=== PATIENT | male | born 1945 | race Caucasian/White ===

== ENCOUNTER 2017-12-29 11:58 | Inpatient (IN) ==
[2017-12-29] MEDS ORDERED: *HR* Dextrose 50 % in Water (Syg) 50 ML SYRINGE IVP PRN (21:12)
[2017-12-29] MEDS ORDERED: D5% in Water 1,000 ML IVC PRN (21:12)
[2017-12-29] MEDS ORDERED: Dextrose Gel 15 GM/37.5 ML TUBE PO PRN ×2 (21:12)
[2017-12-29] MEDS: Budesonide/Formoterol 160/4.5 1 PUFF INH IH SCH (22:15)
[2017-12-29] MEDS: cephALEXin 500 MG CAPSULE PO SCH (22:44)
[2017-12-29] MEDS: Pregabalin 50 MG CAPSULE PO SCH (22:45)
[2017-12-29] MEDS: Melatonin 3 MG TABLET PO SCH (22:45)
[2017-12-29] MEDS: *HR* OxyCODONE Immed Rel 5 MG TABLET PO PRN (22:46)
[2017-12-29] MEDS: traZODone 50 MG TABLET PO SCH (22:46)
[2017-12-30] MEDS: *HR* OxyCODONE Immed Rel 5 MG TABLET PO PRN ×3 (05:03→13:15)
[2017-12-30] MEDS: *HR* Enoxaparin 40 MG/0.4 ML SYRINGE SQ SCH (05:03)
[2017-12-30 05:51] LABS: Basophils # 0.1 K/mcL (0.0-0.2); Basophils % 0.5 %; Eosinophils # 0.9 K/mcL (0.0-0.6); Eosinophils % 8.8 %; Hematocrit 32.7 % (37.5-50.1); Hemoglobin 11.1 g/dL (12.9-16.9); Immature Granulocytes % 0.4 % (0-4); Lymphocytes # 1.8 K/mcL (0.6-4.6); Lymphocytes % 17.9 %; Mean Corpuscular HGB Conc 33.9 g/dL (31.6-35.5); Mean Corpuscular Hemoglobin 33.4 pg (28.0-33.3); Mean Corpuscular Volume 98.5 fL (83.0-100.0); Mean Platelet Volume 9.8 fL (9.4-12.4); Monocytes # 0.5 K/mcL (0.0-1.3); Monocytes % 5.4 %; Neutrophils # 6.8 K/mcL (1.6-8.9); Platelet Count 163 K/mcL (140-400); Red Blood Count 3.32 M/mcL (4.19-5.50)
[2017-12-30 06:08] LABS: BUN/Creatinine Ratio 14 (6-26); Blood Urea Nitrogen 10 mg/dL (8-23); Carbon Dioxide 23 mEq/L (23-29); Chloride 104 mEq/L (98-107); Glucose 158 mg/dL (70-105); Osmolality,Calculated 280 (280-300); Potassium 3.6 mEq/L (3.5-5.1); Sodium 134 mEq/L (136-145); eGFR For Non-African Americans > 60 (> 60)
[2017-12-30 06:09] LABS: Albumin 2.7 g/dL (3.5-5.7); Albumin/Globulin Ratio 1.1 (1.1-2.2); Bilirubin,Direct 0.4 mg/dL (0.0-0.2); Bilirubin,Indirect 0.5 mg/dL (0.0-1.2); Bilirubin,Total 0.9 mg/dL (0.3-1.0); Globulin 2.4 g/dL (2.4-3.5); Total Protein 5.1 g/dL (6.4-8.9)
[2017-12-30] MEDS: Aspirin Enteric Coated 81 MG Tablet PO SCH (08:54)
[2017-12-30] MEDS: *HR* Metformin 500 MG TABLET PO SCH ×2 (08:54→17:12)
[2017-12-30] MEDS: cephALEXin 500 MG CAPSULE PO SCH ×2 (08:55→20:32)
[2017-12-30] MEDS: Lactobacillus 1 EACH CAP.SPRINK PO SCH (08:55)
[2017-12-30] MEDS: Multivit/Ca/Min/Fe/FA 1 TAB TABLET PO SCH (08:55)
[2017-12-30] MEDS: Folic Acid 1 MG TABLET PO SCH (08:55)
[2017-12-30] MEDS: *HR* Glimepiride 2 MG TABLET PO SCH (08:55)
[2017-12-30] MEDS: Finasteride 5 MG TABLET PO SCH (08:56)
[2017-12-30] MEDS: Cholecalciferol (D-3) 1,000 UNIT TABLET PO SCH (08:56)
[2017-12-30] MEDS: amLODIPine 5 MG TABLET PO SCH (08:56)
[2017-12-30] MEDS: *HR* Amiodarone 200 MG TABLET PO SCH (08:56)
[2017-12-30] MEDS: Pregabalin 50 MG CAPSULE PO SCH ×2 (08:57→20:32)
[2017-12-30] MEDS: EPA PO SCH (08:58)
[2017-12-30] MEDS: FISH OIL PO SCH (08:58)
[2017-12-30] MEDS: DHA PO SCH (08:58)
[2017-12-30] MEDS: Budesonide/Formoterol 160/4.5 1 PUFF INH IH SCH ×2 (08:59→20:33)
[2017-12-30] MEDS: Insulin LISPRO 300 UNITS/3 ML VIAL SQ SCH ×4 (09:00→20:42)
--- NOTE | 2017-12-30 09:06 | Internal Med History&Physical ---
Date of Encounter: 12/30/17 Time of Encounter: 09:00 Assessment and Plan (1) Fusion of lumbar spine Current visit: Yes Status: Acute s/p surgery wound seems to be intact and clean getting rehab consults sent pain is well controlled (2) Psoriatic arthritis Current visit: No Status: Chronic hx of Psoriasis Arthritis no acute synovitis noted he is on mTX and is followed by Rheumatoid as out pt . (3) CAD (coronary artery disease) Current visit: Yes Status: Chronic stable on multiple meds no acute issues at the present time continue present meds Qualifiers: Coronary Disease-Associated Artery/Lesion type: unspecified vessel or lesion type Qualified Code(s): I25.10 - Atherosclerotic heart disease of [place] coronary artery without angina pectoris (4) HTN (hypertension) Current visit: Yes Status: Chronic on multiple meds will followup and adjust meds Qualifiers: Hypertension type: unspecified Qualified Code(s): I10 - Essential (primary) hypertension (5) Sleep apnea Current visit: Yes Status: Chronic uses CPAP please continue to use CPAP at same setting last night he didn't use but counseled him to use it as directed Qualifiers: Sleep apnea type: unspecified type Qualified Code(s): G47.30 - Sleep apnea, unspecified (6) COPD (chronic obstructive pulmonary disease) Current visit: Yes Status: Chronic on multiple inhalers continue present managemement and followup he is also Oxygen dependent uses it all the time Qualifiers: Emphysema type: unspecified Qualified Code(s): J43.9 - Emphysema, unspecified (7) Abnormal liver enzymes Current visit: Yes Status: Acute Noted to have some what elevated enzymes will followup he is also on MTX which could be the reason however the abnormalities are not more then three times normal . 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 Haney is a 72 year old male s/p lumabr fusion who was transferred for further care and rehab to [place] he has a long hx of Anemia, AAA which is being watched ,Asthma,A fib s/p ablation,cataract, Psoriasis arthritis,DM, COPD lymphedema of the left leg, sleep apnea s/p MD,Cahrcot Beatriz tooth disease denies any acute complains except for pain in his back which has been there since surgery and is well controlled He denies any SOB , chest pain Nausea vomiting or diarrhea He denies any fever or chill no cough ,no change in his urination or con stipation . Overall he feels better s/p surgery and is able to put weight which he was unable to do in past Past Med Surg Social Fam HX - Past Medical History Medical history: atrial fibrillation, diabetes, GERD, other Additional medical history: Sleep Apnea (uses CPAP/O2 @ Home), Lymphedema LE Left > Right,. Cataracts, Psoriatic Arthritis, Rymrhpc-Sorgs-Rejuy Disease Psychiatric history: no psych history - Past Surgical History Surgical History: cataract, orthopedic, other, other Additional surgical history: Cardiac - Hole in heart/repaired - Social History Smoking Status: Former smoker - Family History Mother Living Status: Hx Family Cancer: Yes (Uterus Cancer) Father Living Status: Hx Family Cancer: Yes (Lymphoma) Internal Medicine - H&P: Meds Albuterol Sulfate [Albuterol Inhaler] 2 puff IH DAILY PRN 12/29/17 [History] Amiodarone [Cordarone] 200 mg PO DAILY 12/29/17 [History] Aspirin [Adult Aspirin Regimen] 81 mg PO DAILY 12/29/17 [History] Budesonide/Formoterol 160/4.5 [Symbicort 160/4.5] 2 puff IH BIDR 12/29/17 [History] Calcium Carbonate/Vitamin D3 [Calcium 600 + Vit D Tablet] 1 each PO BID 12/29/17 [History] Calcium Polycarbophil [Fibercon] 625 mg PO BID 12/29/17 [History] Cholecalciferol (D-3) [Vitamin D] 1,000 unit PO BID 12/29/17 [History] Ferrous Sulfate [Iron] 325 mg PO DAILY 12/29/17 [History] Finasteride [Proscar] 5 mg PO DAILY 12/29/17 [History] Fish Oil/Dha/Epa [Fish Oil 1,200 mg Fish Oil] 1 each PO DAILY 12/29/17 [History] Folic Acid 1 mg PO DAILY 12/29/17 [History] Glimepiride [Amaryl] 2 mg PO 0800 12/29/17 [History] L.acidoph,Paracasei, B.lactis [Probiotic] 1 each PO DAILY 12/29/17 [History] Melatonin 5 mg PO HS 12/29/17 [History] Methocarbamol [Robaxin] 750 mg PO Q8HR PRN 12/29/17 [History] Methotrexate [Otrexup] 20 mg PO QWEEK 12/29/17 [History] Metoprolol [Lopressor] 25 mg PO BID 12/29/17 [History] Montelukast [Singulair] 10 mg PO HS 12/29/17 [History] Mv-Mn/FA/Coq10/Lycopene/Lutein [Theragran-M Premier 50+ Caplet] 1 each PO DAILY 12/29/17 [History] Omeprazole Magnesium [Prilosec Otc] 20 mg PO DAILY 12/29/17 [History] OxyCODONE Immed Rel [Roxicodone 10 MG] 10 mg PO Q4HR PRN 12/29/17 [History] OxyCODONE Immed Rel [Roxicodone 5 MG] 5 mg PO Q4HR PRN 12/29/17 [History] Potassium Chloride [K-Tab ER] 20 meq PO BID 12/29/17 [History] Pregabalin [Lyrica] 100 mg PO BID 12/29/17 [History] amLODIPine [Norvasc] 10 mg PO DAILY 12/29/17 [History] cephALEXin [Keflex] 500 mg PO BID 12/29/17 [History] metFORMIN [Glucophage] 500 mg PO BIDWM 12/29/17 [History] traZODone [TraZODone] 50 mg PO HS 12/29/17 [History] Allergy/AdvReac Type Severity Reaction Status Date / Time codeine Allergy Nausea Verified 12/29/17 20:12 Latex, Natural Rubber Allergy Rash Verified 12/29/17 20:12 Penicillins Allergy Rash Verified 12/29/17 20:12 Sulfa (Sulfonamide Allergy Rash Verified 12/29/17 20:12 Antibiotics) All Systems PM: A 10-system review of systems was performed and is negative for pertinent findings except as documented above in the HPI. - Constitutional Constitutional: no anorexia, no chills, no excessive sweating, no fatigue, no fever(s), no falls, no lethargy, no malaise, no night sweats - EENT Eyes: no blurry vision, no diplopia, no discharge, no loss of vision, no pain, n o photophobia, no seeing flashes Nose, mouth and throat: no bleeding gums, no dry mouth, no dysphagia, no nasal congestion, no nasal obstruction, no post-nasal drip, no sinus pain, no sinus pressure - Cardiovascular Cardiovascular ROS IM: no chest pain, no claudication, no diaphoresis, no dyspnea, no dyspnea on exertion, no lightheadedness, no orthopnea, no palpitations, no paroxysmal nocturnal dyspnea, no syncope - Respiratory Respiratory: no cough, no dyspnea, no hemoptysis, no dyspnea on exertion, no wheezing, no pain on inspiration, no chest congestion, no excessive phlegm production, no change in phlegm color, no pain with cough - Gastrointestinal Gastrointestinal: no abdominal pain, no change in bowel habits, no change in stool character, no coffee ground emesis, no constipation, no cramping, no heartburn, no hematemesis, no hematochezia, no melena, no nausea, no odynophagia, no vomiting - Genitourinary Genitourinary ROS male: no dysuria, no genital lesions, no nocturia, no post void dribbling, no scrotal swelling, no urinary frequency, no urinary hesitancy, no urinary incontinence, no urinary urgency - Musculoskeletal Musculoskeletal ROS IM: arthralgias, back pain, limited range of motion, muscle cramps, stiffness - Neurological Neurological ROS: abnormal gait, no convulsions, no dizziness, no focal weakness, no memory loss, no numbness, no paresthesias - Psychiatric Psychiatric: no hallucinations, no homicidal ideation, no suicidal ideation - Constitutional Vitals: Temp Pulse Resp BP Pulse Ox 99.1 F 86 20 135/79 90 12/30/17 07:12 12/30/17 07:12 12/30/17 07:12 12/30/17 07:12 12/30/17 07:12 General appearance: Present: A&O X 3, pleasant, no acute distress, obese, answers questions appropriately - Head Head exam: Present: atraumatic - Eye Eye exam: Present: EOMI, PERRL. Absent: periorbital swelling, scleral icterus, conjuntiva pink Pupils: Present: PERRL - ENT ENT exam: Present: mucous membranes moist, normal oropharynx - Neck Neck exam general surgery: Present: full ROM, supple. Absent: tenderness, nuchal rigidity - Respiratory Respiratory exam: Present: CTAB. Absent: accessory muscle use, chest wall tenderness, rales, respiratory distress, rhonchi, stridor, wheezes, tachypnea - Cardiovascular Cardiovascular exam: Present: RRR, +S1, +S2, systolic murmur. Absent: irregular rhythm, JVD Additional comments: soft systolic mummer no radiation more at apex - GI/Abdominal GI/Abdominal exam: Present: normal bowel sounds, soft. Absent: distended, firm, guarding, rebound, rigid, splenomegaly Additional comments: obese and distended soft - Extremities Exam Extremities exam: Present: pedal edema. Absent: tenderness Additional comments: left ankle more swollen the right side shea deformaity of left ankle as well no local pain some joints deformities no synovitis noted - Incison Incision: Present: clean and dry, intact. Absent: red, swollen, inflamed, erythema, serous - Neurological Exam Neurological exam: Present: CN II-XII intact, oriented X3, no focal deficits, strengths equal and symetr throughout. Absent: facial droop, speech deficit Internal Med - H&P Results - Labs CBC & Chem 7: 12/30/17 05:35 12/30/17 05:35 Labs: Short CBC 12/30/17 Range/Units 05:35 WBC 10.1 (4.3-11.1) K/mcL Hgb 11.1 L (12.9-16.9) g/dL Hct 32.7 L (37.5-50.1) % Plt Count 163 (140-400) K/mcL Neutrophils # 6.8 (1.6-8.9) K/mcL BMP 12/30/17 05:35 Sodium 134 L Potassium 3.6 Chloride 104 Carbon Dioxide 23 BUN 10 Creatinine 0.69 L Glucose 158 H Calcium 8.0 L Liver Function 12/30/17 Range/Units 05:35 Total Bilirubin 0.9 (0.3-1.0) mg/dL Direct Bilirubin 0.4 H (0.0-0.2) mg/dL AST 87 H (13-39) Units/L ALT 290 H (7-52) Units/L Alkaline Phosphatase 78 (34-104) Units/L Albumin 2.7 L (3.5-5.7) g/dL
[2017-12-30 19:09] LABS: Estimated Average Glucose 180 mg/dl; Hemoglobin A1C 7.9 %
[2017-12-30] MEDS: Melatonin 3 MG TABLET PO SCH (20:33)
[2017-12-30] MEDS: traZODone 50 MG TABLET PO SCH (20:34)
[2017-12-31] MEDS: *HR* OxyCODONE Immed Rel 5 MG TABLET PO PRN ×5 (02:59→23:52)
[2017-12-31] MEDS: *HR* Enoxaparin 40 MG/0.4 ML SYRINGE SQ SCH (05:18)
[2017-12-31] MEDS: Insulin LISPRO 300 UNITS/3 ML VIAL SQ SCH ×4 (07:40→20:58)
[2017-12-31] MEDS: Pregabalin 50 MG CAPSULE PO SCH ×2 (08:11→20:54)
[2017-12-31] MEDS: Cholecalciferol (D-3) 1,000 UNIT TABLET PO SCH (08:11)
[2017-12-31] MEDS: Folic Acid 1 MG TABLET PO SCH (08:11)
--- NOTE | 2017-12-31 08:11 | Internal Med Progress Note ---
Date of Encounter: 12/31/17 Time of Encounter: 08:09 - Assessment and plan (1) Fusion of lumbar spine Current Visit: Yes Status: Acute Assessment and plan: pain is stable so is his incision which is clean he is able to get up uses brace when up getting his rehab. stable (2) Psoriatic arthritis Current Visit: No Status: Chronic Assessment and plan: On MTX no apparent synovitis noted stable pain is reasonable well controlled (3) CAD (coronary artery disease) Current Visit: Yes Status: Chronic Assessment and plan: stable no chest pain hx of A fib s/p Ablation and is in RRR Qualifiers: Coronary Disease-Associated Artery/Lesion type: unspecified vessel or lesion type Qualified Code(s): I25.10 - Atherosclerotic heart disease of [place] coronary artery without angina pectoris (4) HTN (hypertension) Current Visit: Yes Status: Chronic Assessment and plan: Multiple meds , obese as well Systolic seems to be slighly high will followup and make adjustments as needed Qualifiers: Hypertension type: unspecified Qualified Code(s): I10 - Essential (primary) hypertension (5) Sleep apnea Current Visit: Yes Status: Chronic Assessment and plan: Uses CPAP and is doing well slept thorough night Qualifiers: Sleep apnea type: unspecified type Qualified Code(s): G47.30 - Sleep apnea, unspecified (6) COPD (chronic obstructive pulmonary disease) Current Visit: Yes Status: Chronic Assessment and plan: On multiple inhalers due to hx of COPD not an active issues . He continues to ahve inhalers as needed and on regularly stable no cough or SOB Qualifiers: Emphysema type: unspecified Qualified Code(s): J43.9 - Emphysema, unspecified (7) Abnormal liver enzymes Current Visit: Yes Status: Acute Assessment and plan: Most likely due to MTX followup labs tomorrow if conitnues to increase consider stopping MTX . his original plan is to stop and give a trial of biological once released from the hospital (8) Diabetes education, encounter for Current Visit: Yes Status: Acute Assessment and plan: slight high on oral meds will follow HBA1C is pending (9) Diabetes 1.5, managed as type 2 Current Visit: Yes Status: Chronic - Subjective Interval history: Doing very well uses CPAP at night and slept well No SOB no chest pain palpitation or any other complains pain is well controlled and within tolerable range Got Rehab yesterday swelling in feet the same as before - Constitutional Vitals: Temp Pulse Resp BP Pulse Ox 97.9 F 73 19 150/71 92 12/30/17 19:29 12/30/17 19:29 12/30/17 19:29 12/30/17 19:29 12/30/17 22:00 General appearance: Present: A&O X 3, pleasant, no acute distress, obese, answers questions appropriately - Head Head exam: Present: atraumatic - Eye Eye exam: Present: EOMI, PERRL. Absent: scleral icterus Pupils: Present: PERRL - Neck Neck exam general surgery: Present: supple. Absent: tenderness, nuchal rigidity - Respiratory Respiratory exam: Present: CTAB. Absent: decreased breath sounds, prolonged expiratory phase, respiratory distress, rhonchi, stridor, wheezes, tachypnea - Cardiovascular Cardiovascular exam: Present: RRR, +S1, +S2. Absent: irregular rhythm, JVD - GI/Abdominal GI/Abdominal exam: Present: normal bowel sounds, soft. Absent: guarding, rebound, rigid, tenderness Additional comments: obese but soft - Extremities Exam Extremities exam: Present: pedal edema Additional comments: piting left ++++right +++ - Incison Incision: Present: clean and dry, intact. Absent: red, swollen, inflamed - Neurological Exam Neurological exam: Present: CN II-XII intact, oriented X3, no focal deficits. Absent: pronater drift, facial droop, speech deficit Internal Medicine: Result - Labs CBC & Chem 7: 12/30/17 05:35 12/30/17 05:35 Consult Discharge Plan - Plan Referrals: Rickie Egan [Primary Care Provider] -
[2017-12-31] MEDS: *HR* Amiodarone 200 MG TABLET PO SCH (08:12)
[2017-12-31] MEDS: *HR* Metformin 500 MG TABLET PO SCH ×2 (08:12→17:46)
[2017-12-31] MEDS: amLODIPine 5 MG TABLET PO SCH (08:12)
[2017-12-31] MEDS: Multivit/Ca/Min/Fe/FA 1 TAB TABLET PO SCH (08:13)
[2017-12-31] MEDS: Finasteride 5 MG TABLET PO SCH (08:13)
[2017-12-31] MEDS: cephALEXin 500 MG CAPSULE PO SCH ×2 (08:13→20:54)
[2017-12-31] MEDS: *HR* Glimepiride 2 MG TABLET PO SCH (08:14)
[2017-12-31] MEDS: Aspirin Enteric Coated 81 MG Tablet PO SCH (08:14)
[2017-12-31] MEDS: Lactobacillus 1 EACH CAP.SPRINK PO SCH (08:14)
[2017-12-31] MEDS: DHA PO SCH (08:15)
[2017-12-31] MEDS: EPA PO SCH (08:15)
[2017-12-31] MEDS: FISH OIL PO SCH (08:15)
[2017-12-31] MEDS: Budesonide/Formoterol 160/4.5 1 PUFF INH IH SCH ×2 (10:32→21:00)
[2017-12-31] MEDS: Melatonin 3 MG TABLET PO SCH (20:55)
[2017-12-31] MEDS: traZODone 50 MG TABLET PO SCH (20:56)
[2018-01-01] MEDS: *HR* OxyCODONE Immed Rel 5 MG TABLET PO PRN ×3 (04:30→21:39)
[2018-01-01] MEDS: *HR* Enoxaparin 40 MG/0.4 ML SYRINGE SQ SCH (05:31)
[2018-01-01 05:36] LABS: Basophils # 0.1 K/mcL (0.0-0.2); Basophils % 0.6 %; Eosinophils # 0.8 K/mcL (0.0-0.6); Eosinophils % 9.4 %; Hematocrit 33.8 % (37.5-50.1); Hemoglobin 11.5 g/dL (12.9-16.9); Immature Granulocytes % 0.5 % (0-4); Lymphocytes # 1.4 K/mcL (0.6-4.6); Lymphocytes % 17.6 %; Mean Corpuscular Hemoglobin 33.3 pg (28.0-33.3); Monocytes # 0.8 K/mcL (0.0-1.3); Monocytes % 10.2 %; Platelet Count 187 K/mcL (140-400); Red Blood Count 3.45 M/mcL (4.19-5.50); Red Cell Distribution Width 14.7 % (11.5-14.5); Segmented Neutrophils % 61.7 %
[2018-01-01 05:41] LABS: INR 1.2; Prothrombin Time 13.1 Seconds (9.4-12.1)
[2018-01-01 05:53] LABS: BUN/Creatinine Ratio 16 (6-26); Blood Urea Nitrogen 11 mg/dL (8-23); Calcium 8.3 mg/dL (8.6-10.3); Carbon Dioxide 23 mEq/L (23-29); Chloride 105 mEq/L (98-107); Glucose 153 mg/dL (70-105); Osmolality,Calculated 280 (280-300); Potassium 3.8 mEq/L (3.5-5.1); Sodium 134 mEq/L (136-145); eGFR For Non-African Americans > 60 (> 60)
[2018-01-01] MEDS: Lactobacillus 1 EACH CAP.SPRINK PO SCH (07:52)
[2018-01-01] MEDS: Finasteride 5 MG TABLET PO SCH (07:52)
[2018-01-01] MEDS: cephALEXin 500 MG CAPSULE PO SCH ×2 (07:53→21:38)
[2018-01-01] MEDS: amLODIPine 5 MG TABLET PO SCH (07:53)
[2018-01-01] MEDS: Cholecalciferol (D-3) 1,000 UNIT TABLET PO SCH (07:53)
[2018-01-01] MEDS: Folic Acid 1 MG TABLET PO SCH (07:53)
[2018-01-01] MEDS: Aspirin Enteric Coated 81 MG Tablet PO SCH (07:53)
[2018-01-01] MEDS: *HR* Amiodarone 200 MG TABLET PO SCH (07:53)
[2018-01-01] MEDS: Multivit/Ca/Min/Fe/FA 1 TAB TABLET PO SCH (07:53)
[2018-01-01] MEDS: *HR* Metformin 500 MG TABLET PO SCH ×2 (07:53→17:02)
[2018-01-01] MEDS: Pregabalin 50 MG CAPSULE PO SCH ×2 (07:53→21:38)
[2018-01-01] MEDS: *HR* Glimepiride 2 MG TABLET PO SCH (07:53)
[2018-01-01] MEDS: Insulin LISPRO 300 UNITS/3 ML VIAL SQ SCH ×4 (07:53→21:39)
[2018-01-01] MEDS: DHA PO SCH (07:54)
[2018-01-01] MEDS: FISH OIL PO SCH (07:54)
[2018-01-01] MEDS: EPA PO SCH (07:54)
[2018-01-01] MEDS: Budesonide/Formoterol 160/4.5 1 PUFF INH IH SCH ×2 (11:06→21:39)
--- NOTE | 2018-01-01 11:48 | Internal Med Progress Note ---
Addendum entered and electronically signed by Lori Simons 01/02/18 17:01: I have personally performed a face to face evaluation on this patient. I have reviewed and agree with the care plan. 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 Participating well with therapy. States bowels are not moving very well. Only had to bowel movements in surgery and they were very small. Discussed ordering laxatives to assist with this. Liver enzymes have been elevated. Patient is on methotrexate. Will repeat labs for tomorrow. States pain is controlled with current pain medication. Denies fever, chills, nausea vomiting or diarrhea. Denies shortness of breath or chest pain left lower extremity edematous. Discussed ordering venous Doppler. - Constitutional Vitals: Temp Pulse Resp BP Pulse Ox 98.2 F 72 16 143/74 92 01/01/18 07:22 01/01/18 07:22 01/01/18 07:22 01/01/18 07:22 01/01/18 07:22 General appearance: Present: A&O X 3, pleasant, no acute distress, obese, answers questions appropriately - Head Head exam: Present: atraumatic, normocephalic - Eye Eye exam: Present: PERRL, conjuntiva pink, sclera anicteric Pupils: Present: PERRL - Neck Neck exam general surgery: Present: supple, trachea midline. Absent: lymphadenopathy - Respiratory Respiratory exam: Present: CTAB. Absent: accessory muscle use, rales, rhonchi, wheezes - Cardiovascular Cardiovascular exam: Present: RRR, +S1, +S2. Absent: diastolic murmur, gallop, rubs, systolic murmur - GI/Abdominal GI/Abdominal exam: Present: normal bowel sounds, soft, no peritoneal signs. Absent: distended, tenderness - Extremities Exam Extremities exam: Present: warm, radial pulses palpable and symmetrical. Absent: calf tenderness, cyanotic, pedal edema Additional comments: Left lower extremity non-pitting edema. - Incison Comments: Lumbar spine dressing intact with moderate amount of serousanguinous drainage. - Neurological Exam Neurological exam: Present: CN II-XII intact, oriented X3, no focal deficits. Absent: pronater drift, facial droop, speech deficit - Skin Skin exam: Present: dry, intact Internal Medicine: Result - Labs CBC & Chem 7: 01/01/18 05:25 01/01/18 05:25 Labs: Short CBC 01/01/18 Range/Units 05:25 WBC 8.1 (4.3-11.1) K/mcL Hgb 11.5 L (12.9-16.9) g/dL Hct 33.8 L (37.5-50.1) % Plt Count 187 (140-400) K/mcL Neutrophils # 5.0 (1.6-8.9) K/mcL BMP 01/01/18 05:25 Sodium 134 L Potassium 3.8 Chloride 105 Carbon Dioxide 23 BUN 11 Creatinine 0.70 Glucose 153 H Calcium 8.3 L - ABG Interpretation ABG results: PT/INR, D-dimer PT 13.1 Seconds (9.4-12.1) H 01/01/18 05:25 Consult Discharge Plan - Plan Referrals: Rickie Egan [Primary Care Provider] -
[2018-01-01] MEDS: Melatonin 3 MG TABLET PO SCH (21:38)
[2018-01-01] MEDS: Methocarbamol 750 MG TABLET PO PRN (21:38)
[2018-01-01] MEDS: traZODone 50 MG TABLET PO SCH (21:39)
[2018-01-02] MEDS: *HR* Enoxaparin 40 MG/0.4 ML SYRINGE SQ SCH (05:20)
[2018-01-02] MEDS: *HR* OxyCODONE Immed Rel 5 MG TABLET PO PRN ×3 (05:20→22:17)
[2018-01-02 05:40] LABS: Hematocrit 35.6 % (37.5-50.1); Hemoglobin 11.9 g/dL (12.9-16.9); Mean Corpuscular HGB Conc 33.4 g/dL (31.6-35.5); Mean Corpuscular Hemoglobin 33.1 pg (28.0-33.3); Mean Corpuscular Volume 98.9 fL (83.0-100.0); Mean Platelet Volume 10.2 fL (9.4-12.4); Platelet Count 232 K/mcL (140-400); Red Cell Distribution Width 14.6 % (11.5-14.5)
[2018-01-02 05:58] LABS: Alanine Aminotransferase 109 Units/L (7-52); Albumin 2.9 g/dL (3.5-5.7); Alkaline Phosphatase 97 Units/L (34-104); Aspartate Amino Transferase 34 Units/L (13-39); BUN/Creatinine Ratio 13 (6-26); Bilirubin,Direct 0.1 mg/dL (0.0-0.2); Bilirubin,Indirect 0.3 mg/dL (0.0-1.2); Bilirubin,Total 0.4 mg/dL (0.3-1.0); Blood Urea Nitrogen 9 mg/dL (8-23); Calcium 8.6 mg/dL (8.6-10.3); Carbon Dioxide 24 mEq/L (23-29); Chloride 104 mEq/L (98-107); Globulin 2.8 g/dL (2.4-3.5); Glucose 152 mg/dL (70-105); Osmolality,Calculated 280 (280-300); Potassium 3.7 mEq/L (3.5-5.1); Sodium 134 mEq/L (136-145); Total Protein 5.7 g/dL (6.4-8.9); eGFR For Non-African Americans > 60 (> 60)
[2018-01-02] MEDS: *HR* Metformin 500 MG TABLET PO SCH ×2 (08:06→17:23)
[2018-01-02] MEDS: Folic Acid 1 MG TABLET PO SCH (08:06)
[2018-01-02] MEDS: *HR* Glimepiride 2 MG TABLET PO SCH (08:06)
[2018-01-02] MEDS: amLODIPine 5 MG TABLET PO SCH (08:06)
[2018-01-02] MEDS: Aspirin Enteric Coated 81 MG Tablet PO SCH (08:06)
[2018-01-02] MEDS: Methocarbamol 750 MG TABLET PO PRN (08:06)
[2018-01-02] MEDS: Finasteride 5 MG TABLET PO SCH (08:06)
[2018-01-02] MEDS: Cholecalciferol (D-3) 1,000 UNIT TABLET PO SCH (08:06)
[2018-01-02] MEDS: Multivit/Ca/Min/Fe/FA 1 TAB TABLET PO SCH (08:07)
[2018-01-02] MEDS: *HR* Amiodarone 200 MG TABLET PO SCH (08:07)
[2018-01-02] MEDS: cephALEXin 500 MG CAPSULE PO SCH ×2 (08:07→20:33)
[2018-01-02] MEDS: Pregabalin 50 MG CAPSULE PO SCH ×2 (08:07→20:34)
[2018-01-02] MEDS: Lactobacillus 1 EACH CAP.SPRINK PO SCH (08:07)
[2018-01-02] MEDS ORDERED: *HR* Methotrexate 2.5 MG TABLET PO SCH (09:00)
--- NOTE | 2018-01-02 10:41 | Internal Med Progress Note ---
Addendum entered and electronically signed by Lori Simons 01/07/18 15:32: For this encounter, I have reviewed the NPS documentation, treatment plan, and medical decision making; and I have had face to face time with this patient. Addendum entered and electronically signed by Lori Simons 01/02/18 17:03: I have personally performed a face to face evaluation on this patient. I have reviewed and agree with the care plan. 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 Patient denies any other neurological deficits or radicular symptoms. Patient given education on postoperative surgical pain and states understanding. No other neurological deficits noted on exam. Surgical incision appears dry and intact. Patient mobilizing well with physical therapy and states that his pain is well tolerated with current medications. We will continue with current medications. Patient being prepared for possible discharge tomorrow (2) CAD (coronary artery disease) Current Visit: Yes Status: Chronic Assessment and plan: No acute issues. Patient denies any chest discomforts or palpitations. We will continue with current medications. Qualifiers: Coronary Disease-Associated Artery/Lesion type: unspecified vessel or lesion type Qualified Code(s): I25.10 - Atherosclerotic heart disease of [place] coronary artery without angina pectoris (3) HTN (hypertension) Current Visit: Yes Status: Chronic Assessment and plan: Vital signs remained stable during stay at this facility. We will continue with current medications Qualifiers: Hypertension type: unspecified Qualified Code(s): I10 - Essential (primary) hypertension (4) COPD (chronic obstructive pulmonary disease) Current Visit: Yes Status: Chronic Assessment and plan: No acute issues. Lungs are clear respiratory effort is relaxed. No productive cough. Continue with current medications. Qualifiers: Emphysema type: unspecified Qualified Code(s): J43.9 - Emphysema, unspecifi ed (5) Diabetes 1.5, managed as type 2 Current Visit: Yes Status: Chronic Assessment and plan: No acute issues. Patient's glucose has been fairly well-controlled with most readings less than 170 on fingersticks. We will continue with current diabetic regimen. - Time Spent With Patient less than 15 minutes - Subjective Interval history: Patient appears relaxed and was observed ambulating with physical therapy. Patient states that he has had a new onset of pain postoperatively with radiation down his left hip. Patient states that preoperatively his symptoms included radicular pain down the right leg to mid calf level, which he states has resolved since surgery. He states that his pain is tolerable with current medications. Patient denies any other decreased sensation or radicular symptoms. States that physical therapy has been progressing well - Constitutional Vitals: Temp Pulse Resp BP Pulse Ox 97.6 F 65 18 124/73 97 01/02/18 06:55 01/02/18 06:55 01/02/18 06:55 01/02/18 06:55 01/02/18 06:55 General appearance: Present: A&O X 3, pleasant, no acute distress, obese, answers questions appropriately - Head Head exam: Present: atraumatic, normocephalic - Eye Eye exam: Present: PERRL, conjuntiva pink, sclera anicteric Pupils: Present: PERRL - Neck Neck exam general surgery: Present: supple, trachea midline. Absent: lymphadenopathy - Respiratory Respiratory exam: Present: CTAB. Absent: accessory muscle use, rales, rhonchi, wheezes - Cardiovascular Cardiovascular exam: Present: RRR, +S1, +S2. Absent: diastolic murmur, gallop, rubs, systolic murmur - GI/Abdominal GI/Abdominal exam: Present: normal bowel sounds, soft, no peritoneal signs. Absent: distended, tenderness - Extremities Exam Extremities exam: Present: warm, radial pulses palpable and symmetrical. Absent: calf tenderness, cyanotic, pedal edema - Back Exam Additional comments: Midline lumbar surgical incision appears dry and intact. No edema or erythema. - Neurological Exam Neurological exam: Present: CN II-XII intact, oriented X3, no focal deficits. Absent: pronater drift, facial droop, speech deficit Additional comments: No acute focal neurological deficits noted. Patient with radicular symptoms down the left hip. No decreased sensation noted. Negative leg lift. No clonus. No hyperreflexia. - Skin Skin exam: Present: dry, intact Internal Medicine: Result - Labs CBC & Chem 7: 01/02/18 05:05 01/02/18 05:05 Labs: Short CBC 01/02/18 Range/Units 05:05 WBC 10.7 (4.3-11.1) K/mcL Hgb 11.9 L (12.9-16.9) g/dL Hct 35.6 L (37.5-50.1) % Plt Count 232 (140-400) K/mcL BMP 01/02/18 05:05 Sodium 134 L Potassium 3.7 Chloride 104 Carbon Dioxide 24 BUN 9 Creatinine 0.71 Glucose 152 H Calcium 8.6 Liver Function 01/02/18 Range/Units 05:05 Total Bilirubin 0.4 (0.3-1.0) mg/dL Direct Bilirubin 0.1 (0.0-0.2) mg/dL AST 34 (13-39) Units/L ALT 109 H (7-52) Units/L Alkaline Phosphatase 97 (34-104) Units/L Albumin 2.9 L (3.5-5.7) g/dL - ABG Interpretation ABG results: PT/INR, D-dimer PT 13.1 Seconds (9.4-12.1) H 01/01/18 05:25 Consult Discharge Plan - Plan Referrals: Rickie Egan [Primary Care Provider] -
[2018-01-02] MEDS: Insulin LISPRO 300 UNITS/3 ML VIAL SQ SCH ×4 (11:09→20:34)
[2018-01-02] MEDS: FISH OIL PO SCH (11:10)
[2018-01-02] MEDS: EPA PO SCH (11:10)
[2018-01-02] MEDS: DHA PO SCH (11:10)
[2018-01-02] MEDS: Budesonide/Formoterol 160/4.5 1 PUFF INH IH SCH ×2 (14:03→20:37)
[2018-01-02] MEDS: Melatonin 3 MG TABLET PO SCH (20:33)
[2018-01-02] MEDS: traZODone 50 MG TABLET PO SCH (20:33)
[2018-01-03] MEDS: *HR* Enoxaparin 40 MG/0.4 ML SYRINGE SQ SCH (06:39)
[2018-01-03 07:04] VITALS: BP 152/70
[2018-01-03] MEDS: amLODIPine 5 MG TABLET PO SCH (07:34)
[2018-01-03] MEDS: *HR* OxyCODONE Immed Rel 5 MG TABLET PO PRN (07:34)
[2018-01-03] MEDS: Lactobacillus 1 EACH CAP.SPRINK PO SCH (07:35)
[2018-01-03] MEDS: Multivit/Ca/Min/Fe/FA 1 TAB TABLET PO SCH (07:35)
[2018-01-03] MEDS: Budesonide/Formoterol 160/4.5 1 PUFF INH IH SCH (07:35)
[2018-01-03] MEDS: Aspirin Enteric Coated 81 MG Tablet PO SCH (07:36)
[2018-01-03] MEDS: Folic Acid 1 MG TABLET PO SCH (07:36)
[2018-01-03] MEDS: Cholecalciferol (D-3) 1,000 UNIT TABLET PO SCH (07:36)
[2018-01-03] MEDS: Finasteride 5 MG TABLET PO SCH (07:36)
[2018-01-03] MEDS: *HR* Amiodarone 200 MG TABLET PO SCH (07:36)
[2018-01-03] MEDS: *HR* Glimepiride 2 MG TABLET PO SCH (07:36)
[2018-01-03] MEDS: Insulin LISPRO 300 UNITS/3 ML VIAL SQ SCH (07:37)
[2018-01-03] MEDS: Pregabalin 50 MG CAPSULE PO SCH (07:37)
[2018-01-03] MEDS: *HR* Metformin 500 MG TABLET PO SCH (07:37)
[2018-01-03] MEDS: cephALEXin 500 MG CAPSULE PO SCH (07:38)
[2018-01-03] MEDS: FISH OIL PO SCH (07:39)
[2018-01-03] MEDS: DHA PO SCH (07:39)
[2018-01-03] MEDS: EPA PO SCH (07:39)
--- NOTE | 2018-01-03 09:29 | Discharge Summary ---
Addendum entered and electronically signed by Lori Simons 01/07/18 15:31: For this encounter, I have reviewed the WORKERS COMPENSATION CLAIMS ANALYST documentation, treatment plan, and medical decision making; and I have had face to face time with this patient. Original Note: Orders not resulted at time of discharge: Pending orders 01/08/18 04:00 BMP [Basic Metabolic Panel] MO Complete Blood Count [HEME] MO PT/INR [Prothrombin Time INR] [COAG] MO 01/15/18 04:00 BMP [Basic Metabolic Panel] MO Complete Blood Count [HEME] MO PT/INR [Prothrombin Time INR] [COAG] MO 01/22/18 04:00 BMP [Basic Metabolic Panel] MO Complete Blood Count [HEME] MO PT/INR [Prothrombin Time INR] [COAG] MO 01/29/18 04:00 BMP [Basic Metabolic Panel] MO Complete Blood Count [HEME] MO PT/INR [Prothrombin Time INR] [COAG] MO Date of Encounter: 01/03/18 Time of Encounter: 09:25 - Discharge Diagnosis (1) Fusion of lumbar spine Priority: Primary Status: Acute Comments: Patient was a lumbar [facility] [place]. Patient had an uneventful recovery and was transferred to this facility for further rehabilitation due to deconditioning and for pain management. Patient has progressed well with physical therapy and has been observed ambulating with walker with minimal assist. Patient has had minimal postsurgical pain down the left hip which she states has been well-controlled with current medications. Patient's preoperative symptoms included right lower extremity radiculopathy which patient states has been resolved with surgery. Patient is to continue physical therapy as an outpatient with home health. Patient is to have follow- up with orthopedics and PCP (2) CAD (coronary artery disease) Priority: Secondary Status: Chronic Comments: No acute issues during his stay at this facility. Patient has denied any chest palpitations or discomforts. Vital signs are stable. We will continue with current medications. Patient is to follow-up with PCP after discharge Qualifiers: Coronary Disease-Associated Artery/Lesion type: unspecified vessel or lesion type Qualified Code(s): I25.10 - Atherosclerotic heart disease of [place] coronary artery without angina pectoris (3) HTN (hypertension) Priority: Secondary Status: Chronic Comments: Vital signs remained stable during his stay at this facility. Patient is continue with current medications after discharge and follow-up with PCP in one week Qualifiers: Hypertension type: unspecified Qualified Code(s): I10 - Essential (primary) hypertension (4) COPD (chronic obstructive pulmonary disease) Priority: Secondary Status: Chronic Comments: No acute issues during stay at this facility patient's lungs have been clear with no complaints of dyspnea or productive cough. Patient has ambulated with no dyspnea. Patient's continue with current bronchodilators and medications after discharge and follow-up with PCP Qualifiers: Emphysema type: unspecified Qualified Code(s): J43.9 - Emphysema, unspecified (5) Diabetes 1.5, managed as type 2 Priority: Secondary Status: Chronic Comments: No acute issues. Patient's glucose has been fairly well-controlled with most readings less than 170 during his stay. Patient is a continue with current medication regimen and follow-up with PCP Hospital course: Mr. Haney is a 72 year old male, s/p lumabar fusion who [facility] Patient had a long history of lumbar disc disease. Patient had uneventful recovery at the [facility] hospital was transferred to this facility for further rehabilitation due to deconditioning and pain management. Patient's surgical incision appears healthy. Pain has been well managed with current medications. Patient does have acute postoperative pain down his left hip area but states that has been minimal. Patient's preoperative symptoms included right lower leg radiculopathy which patient states has been resolved after surgery. Patient has hx of Anemia, AAA which is being watched ,Asthma,A fib s/p ablation,cataract, Psoriasis arthritis,DM, COPD lymphedema of the left leg, sleep apnea s/p DC. Patient is being discharged with prescriptions for Robaxin and oxycodone provided by the surgeon. Patient is follow-up with his surgeon and PCP N1 week. Patient is continue physical therapy as an outpatient through home health services. Discharge discussed with: patient Time spent discussing smoking cessation with patient: 3 to 10 minutes - Time Spent with Patient Total time spent providing and/or coordinating discharge services: Less than 30 minutes - Discharge Medications Home Medications: Albuterol Sulfate [Albuterol Inhaler] 2 puff IH DAILY PRN 12/29/17 [History] Amiodarone [Cordarone] 200 mg PO DAILY 12/29/17 [History] Aspirin [Adult Aspirin Regimen] 81 mg PO DAILY 12/29/17 [History] Budesonide/Formoterol 160/4.5 [Symbicort 160/4.5] 2 puff IH BIDR 12/29/17 [History] Calcium Carbonate/Vitamin D3 [Calcium 600 + Vit D Tablet] 1 each PO BID 12/29/17 [History] Calcium Polycarbophil [Fibercon] 625 mg PO BID 12/29/17 [History] Cholecalciferol (D-3) [Vitamin D] 1,000 unit PO BID 12/29/17 [History] Ferrous Sulfate [Iron] 325 mg PO DAILY 12/29/17 [History] Finasteride [Proscar] 5 mg PO DAILY 12/29/17 [History] Fish Oil/Dha/Epa [Fish Oil 1,200 mg Fish Oil] 1 each PO DAILY 12/29/17 [History] Folic Acid 1 mg PO DAILY 12/29/17 [History] Glimepiride [Amaryl] 2 mg PO 0800 12/29/17 [History] L.acidoph,Paracasei, B.lactis [Probiotic] 1 each PO DAILY 12/29/17 [History] Melatonin 5 mg PO HS 12/29/17 [History] Methocarbamol [Robaxin] 750 mg PO Q8HR PRN 12/29/17 [History] Methotrexate [Otrexup] 20 mg PO QWEEK 12/29/17 [History] Metoprolol [Lopressor] 25 mg PO BID 12/29/17 [History] Montelukast [Singulair] 10 mg PO HS 12/29/17 [History] Mv-Mn/FA/Coq10/Lycopene/Lutein [Theragran-M Premier 50+ Caplet] 1 each PO DAILY 12/29/17 [History] Omeprazole Magnesium [Prilosec Otc] 20 mg PO DAILY 12/29/17 [History] OxyCODONE Immed Rel [Roxicodone 10 MG] 10 mg PO Q4HR PRN 12/29/17 [History] OxyCODONE Immed Rel [Roxicodone 5 MG] 5 mg PO Q4HR PRN 12/29/17 [History] Potassium Chloride [K-Tab ER] 20 meq PO BID 12/29/17 [History] Pregabalin [Lyrica] 100 mg PO BID 12/29/17 [History] amLODIPine [Norvasc] 10 mg PO DAILY 12/29/17 [History] cephALEXin [Keflex] 500 mg PO BID 12/29/17 [History] metFORMIN [Glucophage] 500 mg PO BIDWM 12/29/17 [History] traZODone [TraZODone] 50 mg PO HS 12/29/17 [History] Allergies/Adverse Reactions: Allergy/AdvReac Type Severity Reaction Status Date / Time codeine Allergy Nausea Verified 12/29/17 20:12 Latex, Natural Rubber Allergy Rash Verified 12/29/17 20:12 Penicillins Allergy Rash Verified 12/29/17 20:12 Sulfa (Sulfonamide Allergy Rash Verified 12/29/17 20:12 Antibiotics) Date of admission: 12/29/17 19:49 Primary care physician: Rickie Egan Consults: 12/29/17 21:06 Consult to Occupational Therapy [CONS] Routine Comment: Evaluate, develop and implement POC Reason for Consult: eval / tx Does patient have active BEDREST order?: No Is patient medically & hemodynamically stable?: Yes Patient assessed for mobility or mobilized this visit?: No Consult to Physical Therapy [CONS] Routine Comment: Evaluate, develop and implement POC Reason for Consult: eval / tx Does patient have active BEDREST order?: No Is patient medically & hemodynamically stable?: Yes Patient assessed for mobility or mobilized this visit?: No Consult to Recreational Therapy [CONS] Routine Comment: Evaluate, develop and implement POC Consult to Server Software Engineer [CONS] Routine Reason for SW Consult: d/c planning 12/29/17 22:25 Consult to Physical Medicine/Rehab [CONS] Routine Reason for Consult: Please evaluate and manage therapies' guidelines and recommend pathway to reconditioning. Call Completed: No Discharging clinician: Lori Simons - Constitutional Vitals: Temp Pulse Resp BP Pulse Ox 98.1 F 81 18 152/70 91 01/03/18 07:03 01/03/18 07:03 01/03/18 07:03 01/03/18 07:03 01/03/18 07:03 General appearance: Present: A&O X 3, pleasant, no acute distress, obese, answers questions appropriately - Head Head exam: Present: atraumatic, normocephalic - Eye Eye exam: Present: PERRL, conjuntiva pink, sclera anicteric Pupils: Present: PERRL - Neck Neck exam general surgery: Present: supple, trachea midline. Absent: lymphadenopathy - Respiratory Respiratory exam: Present: CTAB. Absent: accessory muscle use, rales, rhonchi, wheezes - Cardiovascular Cardiovascular exam: Present: RRR, +S1, +S2. Absent: diastolic murmur, gallop, rubs, systolic murmur - GI/Abdominal GI/Abdominal exam: Present: normal bowel sounds, soft, no peritoneal signs. Absent: distended, tenderness - Extremities Exam Extremities exam: Present: warm, radial pulses palpable and symmetrical. Absent: calf tenderness, cyanotic, pedal edema - Back Exam Additional comments: Patient has midline lumbar incision that appears dry and intact. - Neurological Exam Neurological exam: Present: CN II-XII intact, oriented X3, no focal deficits. Absent: pronater drift, facial droop, speech deficit - Skin Skin exam: Present: dry, intact - Patient Status Disposition: Home Health Service Condition: Good Functional capacity at discharge: uses cane/walker Overall status at discharge: patient is progressing back to baseline - Discharge Instructions Instructions: Lumbar Brace (GEN) Follow Up With: Crispin Henderson MD [Non-Partnered Physician] - Rickie Egan [Primary Care Provider] - - Diet and Activity Activity: ambulate only with your walker, as per physical therapy, increase activity as tolerated Diet: diabetic diet, low fat, low cholesterol, low salt diet
[2018-01-03] MEDS: Methocarbamol 750 MG TABLET PO PRN (10:48)
--- NOTE | 2018-01-03 10:56 | Physician Discharge Referral ---
Home Health/Hosp Referral Info Transfer to: Home Health Provider in Charge Post Discharge: PCP - Diagnosis (1) Fusion of lumbar spine Priority: Primary Status: Acute (2) CAD (coronary artery disease) Priority: Secondary Status: Chronic (3) HTN (hypertension) Priority: Secondary Status: Chronic (4) COPD (chronic obstructive pulmonary disease) Priority: Secondary Status: Chronic (5) Diabetes 1.5, managed as type 2 Priority: Secondary Status: Chronic - Respiratory Orders Smoking Cessation: Smoking cessation has been advised. For more information, call the [place] Tobacco Quit Line at 5-521-KNJE-NOW. - Diet/Nutrition Diet/Nutrition Orders: No Added Salt (ANALISA), Cardiac, No Concentrated Sweets - Activity Activity Orders: Up ad narciso, Walker - Services Needed Following services are medically necessary services: Nursing, Physical Therapy - Transfer Medications Home Medications: Albuterol Sulfate [Albuterol Inhaler] 2 puff IH DAILY PRN 12/29/17 [History] Amiodarone [Cordarone] 200 mg PO DAILY 12/29/17 [History] Aspirin [Adult Aspirin Regimen] 81 mg PO DAILY 12/29/17 [History] Budesonide/Formoterol 160/4.5 [Symbicort 160/4.5] 2 puff IH BIDR 12/29/17 [Hist ory] Calcium Carbonate/Vitamin D3 [Calcium 600 + Vit D Tablet] 1 each PO BID 12/29/17 [History] Calcium Polycarbophil [Fibercon] 625 mg PO BID 12/29/17 [History] Cholecalciferol (D-3) [Vitamin D] 1,000 unit PO BID 12/29/17 [History] Ferrous Sulfate [Iron] 325 mg PO DAILY 12/29/17 [History] Finasteride [Proscar] 5 mg PO DAILY 12/29/17 [History] Fish Oil/Dha/Epa [Fish Oil 1,200 mg Fish Oil] 1 each PO DAILY 12/29/17 [History] Folic Acid 1 mg PO DAILY 12/29/17 [History] Glimepiride [Amaryl] 2 mg PO 0800 12/29/17 [History] L.acidoph,Paracasei, B.lactis [Probiotic] 1 each PO DAILY 12/29/17 [History] Melatonin 5 mg PO HS 12/29/17 [History] Methocarbamol [Robaxin] 750 mg PO Q8HR PRN 12/29/17 [History] Methotrexate [Otrexup] 20 mg PO QWEEK 12/29/17 [History] Metoprolol [Lopressor] 25 mg PO BID 12/29/17 [History] Montelukast [Singulair] 10 mg PO HS 12/29/17 [History] Mv-Mn/FA/Coq10/Lycopene/Lutein [Theragran-M Premier 50+ Caplet] 1 each PO DAILY 12/29/17 [History] Omeprazole Magnesium [Prilosec Otc] 20 mg PO DAILY 12/29/17 [History] OxyCODONE Immed Rel [Roxicodone 10 MG] 10 mg PO Q4HR PRN 12/29/17 [History] OxyCODONE Immed Rel [Roxicodone 5 MG] 5 mg PO Q4HR PRN 12/29/17 [History] Potassium Chloride [K-Tab ER] 20 meq PO BID 12/29/17 [History] Pregabalin [Lyrica] 100 mg PO BID 12/29/17 [History] amLODIPine [Norvasc] 10 mg PO DAILY 12/29/17 [History] cephALEXin [Keflex] 500 mg PO BID 12/29/17 [History] metFORMIN [Glucophage] 500 mg PO BIDWM 12/29/17 [History] traZODone [TraZODone] 50 mg PO HS 12/29/17 [History] Allergies/Adverse Reactions: Allergy/AdvReac Type Severity Reaction Status Date / Time codeine Allergy Nausea Verified 12/29/17 20:12 Latex, Natural Rubber Allergy Rash Verified 12/29/17 20:12 Penicillins Allergy Rash Verified 12/29/17 20:12 Sulfa (Sulfonamide Allergy Rash Verified 12/29/17 20:12 Antibiotics) Certification: Further, I certify that my clinical findings support that this patient is homebound (i.e. absences from home require considerable and taxing effort and are for medical reasons or worship services or infrequently or short duration when for other reasons) because: Homebound Reason: Patient requires assistance of a person or device to safely leave home, Post-surgery restriction and or conditions limit ability to leave home Attestation: My signature below is to certify that this patient is under my care and that I, or nurse practitioner, or a physician's camp assistant working with me, has a [id number] encounter with this patient.
== END 2018-01-03 11:16 | disposition home health service (06) | DRG 950 ==
LOC: INPGRE 19:49

== ENCOUNTER 2018-12-05 11:08 | Inpatient (IN) ==
[2018-12-06] MEDS ORDERED: *HR* Dextrose 50 % in Water (Syg) 50 ML SYRINGE IVP PRN (15:01)
[2018-12-06] MEDS ORDERED: D5% in Water 1,000 ML IVC PRN (15:01)
[2018-12-06] MEDS ORDERED: Dextrose Gel 15 GM/37.5 ML TUBE PO PRN ×2 (15:01)
[2018-12-06] MEDS ORDERED: Mag Hydrox/Al Hydrox/Simeth 30 ML UDC PO PRN (15:02)
[2018-12-06] MEDS ORDERED: Ondansetron ODT 4 MG TAB.RAPDIS SL PRN (15:02)
[2018-12-06] MEDS ORDERED: *HR* OxyCODONE Immed Rel 5 MG TABLET PO PRN ×2 (15:05→15:09)
[2018-12-06] MEDS: *HR* OxyCODONE Immed Rel 5 MG TABLET PO PRN (16:56)
[2018-12-06] MEDS: Insulin LISPRO 300 UNITS/3 ML VIAL SQ SCH ×2 (16:58→21:48)
[2018-12-06] MEDS: Furosemide 20 MG TABLET PO SCH (16:59)
[2018-12-06] MEDS: *HR* Metformin 500 MG TABLET PO SCH (16:59)
[2018-12-06] MEDS ORDERED: NON-FORMULARY MEDICATION 1 EACH EACH (Calcium Carbonate/Vitamin D3 [Calcium 600 + Vit D Ta PO SCH (21:00)
[2018-12-06] MEDS: Acetaminophen 325 MG TABLET PO PRN (21:35)
[2018-12-06] MEDS: Pregabalin 75 MG CAPSULE PO SCH (21:36)
[2018-12-06] MEDS: Melatonin 3 MG TABLET PO PRN (21:39)
[2018-12-06] MEDS: Methocarbamol 500 MG TABLET PO PRN (21:41)
[2018-12-06] MEDS: traZODone 50 MG TABLET PO SCH (21:42)
[2018-12-06] MEDS: Cholecalciferol (D-3) 1,000 UNIT (25MCG) TABLET PO SCH (21:53)
[2018-12-06] MEDS: Budesonide/Formoterol 160/4.5 1 PUFF INH IH SCH (21:56)
[2018-12-07 05:34] LABS: Basophils # 0.1 K/mcL (0.0-0.2); Basophils % 0.6 %; Eosinophils # 0.6 K/mcL (0.0-0.6); Eosinophils % 5.6 %; Hematocrit 34.4 % (37.5-50.1); Hemoglobin 11.5 g/dL (12.9-16.9); Immature Granulocytes % 0.7 % (0-4); Lymphocytes # 2.2 K/mcL (0.6-4.6); Mean Corpuscular HGB Conc 33.4 g/dL (31.6-35.5); Mean Corpuscular Hemoglobin 33.5 pg (28.0-33.3); Mean Corpuscular Volume 100.3 fL (83.0-100.0); Mean Platelet Volume 10.2 fL (9.4-12.4); Monocytes # 1.8 K/mcL (0.0-1.3); Monocytes % 16.1 %; Neutrophils # 6.2 K/mcL (1.6-8.9); Platelet Count 234 K/mcL (140-400); Red Blood Count 3.43 M/mcL (4.19-5.50); Red Cell Distribution Width 15.3 % (11.5-14.5)
[2018-12-07 05:53] LABS: BUN/Creatinine Ratio 10 (6-26); Blood Urea Nitrogen 9 mg/dL (8-23); Calcium 8.7 mg/dL (8.6-10.3); Carbon Dioxide 23 mEq/L (23-29); Chloride 102 mEq/L (98-107); Glucose 153 mg/dL (70-105); Magnesium 2.2 mg/dL (1.6-2.6); Osmolality,Calculated 276 (280-300); Sodium 132 mEq/L (136-145); eGFR For African Americans > 60 (> 60); eGFR For Non-African Americans > 60 (> 60)
[2018-12-07] MEDS: *HR* OxyCODONE Immed Rel 5 MG TABLET PO PRN ×4 (06:20→20:30)
[2018-12-07] MEDS: *HR* Enoxaparin 40 MG/0.4 ML SYRINGE SQ SCH ×2 (06:20→08:59)
[2018-12-07] MEDS: Insulin LISPRO 300 UNITS/3 ML VIAL SQ SCH ×4 (08:55→21:40)
[2018-12-07] MEDS: Finasteride 5 MG TABLET PO SCH (08:56)
[2018-12-07] MEDS: Multivit/Ca/Min/Fe/FA 1 TAB TABLET PO SCH (08:56)
[2018-12-07] MEDS: Cholecalciferol (D-3) 1,000 UNIT (25MCG) TABLET PO SCH (08:56)
[2018-12-07] MEDS: *HR* Glimepiride 2 MG TABLET PO SCH (08:56)
[2018-12-07] MEDS: amLODIPine 5 MG TABLET PO SCH (08:57)
[2018-12-07] MEDS: Furosemide 20 MG TABLET PO SCH ×2 (08:57→17:40)
[2018-12-07] MEDS: Folic Acid 1 MG TABLET PO SCH (08:57)
[2018-12-07] MEDS: Aspirin Enteric Coated 81 MG Tablet PO SCH (08:57)
[2018-12-07] MEDS: Pregabalin 75 MG CAPSULE PO SCH ×3 (08:57→20:23)
[2018-12-07] MEDS: *HR* Metformin 500 MG TABLET PO SCH ×2 (08:57→17:40)
[2018-12-07] MEDS: *HR* Amiodarone 200 MG TABLET PO SCH (08:58)
[2018-12-07] MEDS: Methocarbamol 500 MG TABLET PO PRN ×2 (08:58→17:39)
[2018-12-07] MEDS ORDERED: NON-FORMULARY MEDICATION 1 EACH EACH (Fish Oil/Dha/Epa [Fish Oil 1,200 Mg Fish Oil] 1 EACH PO SCH (09:00)
[2018-12-07] MEDS: Budesonide/Formoterol 160/4.5 1 PUFF INH IH SCH ×2 (09:43→21:41)
--- NOTE | 2018-12-07 11:06 | Internal Med History&Physical ---
Date of Encounter: 12/07/18 Time of Encounter: 11:01 Assessment and Plan (1) Fusion of lumbar spine Current visit: Yes Status: Acute PT and OT to eval and treat. Will follow progress. Oxycodone PRN for pain. Follow up with surgeon as scheduled. (2) A-fib Current visit: Yes Status: Acute Rate and rhythm stable. Continue amiodarone. Will monitor. Qualifiers: Atrial fibrillation type: unspecified Qualified Code(s): I48.91 - Unspecified atrial fibrillation (3) CAD (coronary artery disease) Current visit: Yes Status: Chronic Denies chest pain. Continue current medication. Qualifiers: Coronary Disease-Associated Artery/Lesion type: unspecified vessel or lesion type Qualified Code(s): I25.10 - Atherosclerotic heart disease of [place] coronary artery without angina pectoris (4) HTN (hypertension) Current visit: Yes Status: Chronic Controlled with current medication. Monitor blood pressure. Qualifiers: Hypertension type: unspecified Qualified Code(s): I10 - Essential (primary) hypertension (5) COPD (chronic obstructive pulmonary disease) Current visit: Yes Status: Chronic Controlled with current medication. Has sleep apnea. Where CPAP at night. Qualifiers: Emphysema type: unspecified Qualified Code(s): J43.9 - Emphysema, unsp ecified (6) Diabetes 1.5, managed as type 2 Current visit: Yes Status: Chronic Controlled with insulin. Monitor fingerstick blood sugar. Will adjust medicines as necessary. Internal Medicine - H&P: HPI Admitted From: Hospital to Hospital Transfer Plans for Post Hospital Care: Home History of present illness: Mr. Haney is a 73 year old male admitted to inpatient rehab unit status post bilateral laminectomy. Past medical history includes a fib, CAD, COPD, chronic lymphedema to left lower extremity, peripheral neuropathy, sleep apnea, diabetes type II, Gerd, psoriatic arthritis CAD status post PCI in 2008. Wears CPAP at 2 L at bedtime. Denies fever, chills, nausea vomiting or diarrhea. Denies shortness of breath or chest pain. Denies any bowel or bladder issues. States he has been having pain to right hip area. Will obtain x-rays and follow for results. Explain to ask for pain medication as needed. Oxycodone 5 to 10 mg every 4 hours PRN. Will monitor for effectiveness. Former smoker with one and half packs a day for the last 40 years. Reports quitting smoking about 6 1/2 years ago. Son at bedside. PT and OT to eval and treat. Past Med Surg Social Fam HX - Past Medical History Medical history: atrial fibrillation, COPD, diabetes, GERD, other Additional medical history: Sleep Apnea (uses CPAP/O2 @ Home), Lymphedema LE Left > Right,. Cataracts, Psoriatic Arthritis, Wngssrh-Msswa-Zhkhg Disease Psychiatric history: no psych history - Past Surgical History Surgical History: cataract, orthopedic, other, other Additional surgical history: Cardiac - Hole in heart/repaired. left ankle fusion. cardiac stents x2 approx 2007. L4/L5 fusion 2018 - Social History Smoking Status: Former smoker Smokeless Tobacco Status: No Alcohol use: rarely Drug use: none - Family History Mother Living Status: Hx Family Cancer: Yes (Uterine Cancer) Father Living Status: Hx Family Cancer: Yes (Lymphoma) Internal Medicine - H&P: Meds Albuterol Sulfate [Albuterol Inhaler] 2 puff IH DAILY PRN 12/29/17 [History] Amiodarone [Cordarone] 100 mg PO DAILY 12/29/17 [History] Aspirin [Adult Aspirin Regimen] 81 mg PO DAILY 12/29/17 [History] Budesonide/Formoterol 160/4.5 [Symbicort 160/4.5] 2 puff IH BIDR 12/29/17 [History] Calcium Carbonate/Vitamin D3 [Calcium 600 + Vit D Tablet] 1 each PO BID 12/29/17 [History] Calcium Polycarbophil [Fibercon] 625 mg PO BID 12/29/17 [History] Cholecalciferol (D-3) [Vitamin D] 1,000 unit PO BID 12/29/17 [History] Ferrous Sulfate [Iron] 325 mg PO DAILY 12/29/17 [History] Finasteride [Proscar] 5 mg PO DAILY 12/29/17 [History] Fish Oil/Dha/Epa [Fish Oil 1,200 mg Fish Oil] 1 each PO DAILY 12/29/17 [History] Folic Acid 1 mg PO DAILY 12/29/17 [History] Glimepiride [Amaryl] 2 mg PO 0800 12/29/17 [History] L.acidoph,Paracasei, B.lactis [Probiotic] 1 each PO DAILY 12/29/17 [History] Melatonin 5 mg PO HS PRN 12/29/17 [History] Methocarbamol [Robaxin] 750 mg PO Q8HR PRN 12/29/17 [History] Methotrexate [Otrexup] 20 mg PO QWEEK 12/29/17 [History] Metoprolol [Lopressor] 25 mg PO BID 12/29/17 [History] Montelukast [Singulair] 10 mg PO HS 12/29/17 [History] Mv-Mn/FA/Coq10/Lycopene/Lutein [Theragran-M Premier 50+ Caplet] 1 each PO DAILY 12/29/17 [History] Omeprazole Magnesium [Prilosec Otc] 20 mg PO DAILY 12/29/17 [History] OxyCODONE Immed Rel [Roxicodone 10 MG] 10 mg PO Q4HR PRN 12/29/17 [History] OxyCODONE Immed Rel [Roxicodone 5 MG] 5 mg PO Q4HR PRN 12/29/17 [History] Potassium Chloride [K-Tab ER] 20 meq PO BID 12/29/17 [History] Pregabalin [Lyrica] 150 mg PO TID 12/29/17 [History] amLODIPine [Norvasc] 10 mg PO DAILY 12/29/17 [History] metFORMIN [Glucophage] 500 mg PO BIDWM 12/29/17 [History] traZODone [TraZODone] 100 mg PO HS 12/29/17 [History] Furosemide [Lasix] 20 mg PO BID 12/06/18 [History] Lisinopril [Zestril] 10 mg PO HS 12/06/18 [History] Mupirocin Calcium [Bactroban Nasal] 1 gm NS DAILY 12/06/18 [History] Simvastatin [Zocor] 10 mg PO HS 12/06/18 [History] Allergy/AdvReac Type Severity Reaction Status Date / Time codeine Allergy Nausea Verified 12/29/17 20:12 Latex, Natural Rubber Allergy Rash Verified 12/29/17 20:12 Penicillins Allergy Rash Verified 12/29/17 20:12 Sulfa (Sulfonamide Allergy Rash Verified 12/29/17 20:12 Antibiotics) All Systems PM: A 10-system review of systems was performed and is negative for pertinent findings except as documented above in the HPI. - Constitutional Vitals: Temp Pulse Resp BP Pulse Ox 98.4 F 99 16 153/76 96 12/07/18 06:46 12/07/18 06:46 12/07/18 09:45 12/07/18 06:46 12/07/18 09:45 General appearance: Present: cooperative, A&O X 3, pleasant, no acute distress, obese, answers questions appropriately Exam: Full dentures - Head Head exam: Present: atraumatic, normocephalic - Eye Eye exam: Present: PERRL, conjuntiva pink, sclera anicteric Pupils: Present: PERRL - Neck Neck exam general surgery: Present: supple, trachea midline. Absent: lymphadenopathy - Respiratory Respiratory exam: Present: CTAB. Absent: accessory muscle use, rales, rhonchi, wheezes - Cardiovascular Cardiovascular exam: Present: RRR, +S1, +S2. Absent: diastolic murmur, gallop, rubs, systolic murmur - GI/Abdominal GI/Abdominal exam: Present: normal bowel sounds, soft, no peritoneal signs. Absent: distended, tenderness - Extremities Exam Extremities exam: Present: warm, radial pulses palpable and symmetrical. Absent: calf tenderness, cyanotic, pedal edema Additional comments: Left lower extremity, non-pitting edema. - Incison Comments: Bar spine incision dressing dry and intact. No drainage. - Neurological Exam Neurological exam: Present: CN II-XII intact, oriented X3, no focal deficits. Absent: pronater drift, facial droop, speech deficit - Skin Skin exam: Present: dry, intact Internal Med - H&P Results - Labs CBC & Chem 7: 12/07/18 05:11 12/07/18 05:11 Labs: Short CBC 12/07/18 Range/Units 05:11 WBC 11.0 (4.3-11.1) K/mcL Hgb 11.5 L (12.9-16.9) g/dL Hct 34.4 L (37.5-50.1) % Plt Count 234 (140-400) K/mcL Neutrophils # 6.2 (1.6-8.9) K/mcL BMP 12/07/18 05:11 Sodium 132 L Potassium 4.0 Chloride 102 Carbon Dioxide 23 BUN 9 Creatinine 0.91 Glucose 153 H Calcium 8.7 - VTE Documentation of Mechanical Device: Graduated compression elastic hosiery
[2018-12-07] MEDS: traZODone 50 MG TABLET PO SCH (20:23)
[2018-12-07] MEDS: Melatonin 3 MG TABLET PO PRN (20:30)
[2018-12-08] MEDS: Methocarbamol 500 MG TABLET PO PRN (01:00)
[2018-12-08] MEDS: *HR* OxyCODONE Immed Rel 5 MG TABLET PO PRN ×4 (04:46→21:04)
[2018-12-08] MEDS: *HR* Enoxaparin 40 MG/0.4 ML SYRINGE SQ SCH (08:09)
[2018-12-08] MEDS: Multivit/Ca/Min/Fe/FA 1 TAB TABLET PO SCH (08:10)
[2018-12-08] MEDS: Furosemide 20 MG TABLET PO SCH ×2 (08:10→17:43)
[2018-12-08] MEDS: amLODIPine 5 MG TABLET PO SCH (08:10)
[2018-12-08] MEDS: *HR* Amiodarone 200 MG TABLET PO SCH (08:10)
[2018-12-08] MEDS: Pregabalin 75 MG CAPSULE PO SCH ×3 (08:10→21:02)
[2018-12-08] MEDS: Finasteride 5 MG TABLET PO SCH (08:10)
[2018-12-08] MEDS: Cholecalciferol (D-3) 1,000 UNIT (25MCG) TABLET PO SCH (08:11)
[2018-12-08] MEDS: *HR* Metformin 500 MG TABLET PO SCH ×2 (08:11→17:43)
[2018-12-08] MEDS: *HR* Glimepiride 2 MG TABLET PO SCH (08:11)
[2018-12-08] MEDS: Aspirin Enteric Coated 81 MG Tablet PO SCH (08:11)
[2018-12-08] MEDS: Folic Acid 1 MG TABLET PO SCH (08:11)
[2018-12-08] MEDS: Insulin LISPRO 300 UNITS/3 ML VIAL SQ SCH ×4 (08:15→21:01)
[2018-12-08] MEDS: Acetaminophen 325 MG TABLET PO PRN (08:25)
--- NOTE | 2018-12-08 09:16 | Internal Med Progress Note ---
Date of Encounter: 12/08/18 Time of Encounter: 09:16 - Assessment and plan (1) Fusion of lumbar spine Current Visit: Yes Status: Acute Assessment and plan: Patient is doing well, postoperatively. (2) Psoriatic arthritis Current Visit: No Status: Chronic Assessment and plan: This is apparently controlled but will follow expectantly. (3) CAD (coronary artery disease) Current Visit: Yes Status: Chronic Assessment and plan: Clinically, stable without signs or symptoms. Qualifiers: Coronary Disease-Associated Artery/Lesion type: unspecified vessel or lesion type Qualified Code(s): I25.10 - Atherosclerotic heart disease of [place] coronary artery without angina pectoris (4) HTN (hypertension) Current Visit: Yes Status: Chronic Assessment and plan: Marginally controlled. Will follow. Qualifiers: Hypertension type: unspecified Qualified Code(s): I10 - Essential (primary) hypertension (5) Sleep apnea Current Visit: No Status: Chronic Assessment and plan: Compliant with CPAP. Qualifiers: Sleep apnea type: unspecified type Qualified Code(s): G47.30 - Sleep apnea, unspecified (6) COPD (chronic obstructive pulmonary disease) Current Visit: Yes Status: Chronic Assessment and plan: Clinically stable with normal airflow and no evidence of desaturation. Qualifiers: Emphysema type: unspecified Qualified Code(s): J43.9 - Emphysema, unspecified (7) Diabetes 1.5, managed as type 2 Current Visit: Yes Status: Chronic Assessment and plan: Adequate control but will follow. (8) A-fib Current Visit: Yes Status: Acute Assessment and plan: Clinically stable with rate control. Qualifiers: Atrial fibrillation type: unspecified Qualified Code(s): I48.91 - Unspecified atrial fibrillation - Subjective Interval history: Patient complains of persistent right hip pain. He has no other complaints and states that his bowels finally moved but then moved to much. It seems like they have slowed down this morning and he is feeling better. Because of his hip pain, he was given topical ice and this helped minimally but he was also given a lidocaine patch this morning. He states that this is helped significantly and he is pleased to have this on board. 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 Patient has no complaint of chest discomfort, dyspnea, orthopnea, palpitations, nausea or vomiting, constipation or diarrhea, other changes in bowel habits, difficulty with urination, rash or itching, or other new complaints, except as mentioned above. Review of systems is otherwise negative. I discussed management of patient's care with nursing staff. - Constitutional Vitals: Temp Pulse Resp BP Pulse Ox 98.4 F 80 20 153/66 92 12/08/18 07:36 12/08/18 07:36 12/08/18 07:36 12/08/18 07:36 12/08/18 07:36 Exam: General: In no apparent distress. Alert and oriented 3. Nondiaphoretic. Head: Atraumatic and normocephalic. Respiratory: No use of accessory muscles. Lungs are clear throughout. Normal airflow. Cardiovascular: Irregularly irregular consistent with atrial fibrillation, rate controlled, without murmur appreciated. Abdomen: Bowel sounds are normal. No hepatosplenomegaly mass or tenderness appreciated. Obese and therefore difficult to palpate deeply. Patient is wearing a lumbar support brace and this limits abdominal exam, to an extent. Patient is examined upright at bedside and this also limits exam. Extremities: No cyanosis clubbing or edema. Skin: Warm and non-diaphoretic with no new lesions noted. Internal Medicine: Result - Labs CBC & Chem 7: 12/07/18 05:11 12/07/18 05:11 - Impressions Impressions Hip X-Ray 12/07/18 15:39 IMPRESSION: No acute process of the right hip. D/ /07/2018 15:46:32 Alfa Cotter MD / romina Interpreting Provider: Alfa Cotter MD - VTE Documentation of Mechanical Device: Graduated compression elastic hosiery Consult Discharge Plan - Plan Referrals: Tera Rosario MD [Primary Care Provider] -
[2018-12-08] MEDS: Budesonide/Formoterol 160/4.5 1 PUFF INH IH SCH ×2 (10:25→19:29)
[2018-12-08] MEDS: Triamcinolone Acet 0.1% CRM 15 GM TUBE TP SCH (21:02)
[2018-12-08] MEDS: traZODone 50 MG TABLET PO SCH (21:03)
[2018-12-08] MEDS: Melatonin 3 MG TABLET PO PRN (21:04)
[2018-12-09] MEDS: *HR* OxyCODONE Immed Rel 5 MG TABLET PO PRN ×4 (04:40→21:47)
[2018-12-09] MEDS: Insulin LISPRO 300 UNITS/3 ML VIAL SQ SCH ×3 (08:12→21:48)
[2018-12-09] MEDS: Pregabalin 75 MG CAPSULE PO SCH ×3 (08:59→21:46)
[2018-12-09] MEDS: Finasteride 5 MG TABLET PO SCH (08:59)
[2018-12-09] MEDS: Furosemide 20 MG TABLET PO SCH ×2 (08:59→16:37)
[2018-12-09] MEDS: Folic Acid 1 MG TABLET PO SCH (08:59)
[2018-12-09] MEDS: amLODIPine 5 MG TABLET PO SCH (08:59)
[2018-12-09] MEDS: *HR* Metformin 500 MG TABLET PO SCH ×2 (08:59→16:37)
[2018-12-09] MEDS: *HR* Amiodarone 200 MG TABLET PO SCH (08:59)
[2018-12-09] MEDS: Multivit/Ca/Min/Fe/FA 1 TAB TABLET PO SCH (08:59)
[2018-12-09] MEDS: Aspirin Enteric Coated 81 MG Tablet PO SCH (09:00)
[2018-12-09] MEDS: *HR* Enoxaparin 40 MG/0.4 ML SYRINGE SQ SCH (09:00)
[2018-12-09] MEDS: *HR* Glimepiride 2 MG TABLET PO SCH (09:00)
[2018-12-09] MEDS: Triamcinolone Acet 0.1% CRM 15 GM TUBE TP SCH ×2 (09:01→21:48)
[2018-12-09] MEDS: Cholecalciferol (D-3) 1,000 UNIT (25MCG) TABLET PO SCH (09:25)
[2018-12-09] MEDS: Budesonide/Formoterol 160/4.5 1 PUFF INH IH SCH ×2 (09:41→19:34)
--- NOTE | 2018-12-09 10:43 | Internal Med Progress Note ---
Date of Encounter: 12/09/18 Time of Encounter: 10:41 - Assessment and plan (1) Fusion of lumbar spine Current Visit: Yes Status: Acute Assessment and plan: Patient is doing well, postoperatively. Right hip pain persists in this is of unclear etiology. We have deferred back to his spinal surgeon. (2) Psoriatic arthritis Current Visit: No Status: Chronic Assessment and plan: Table. (3) CAD (coronary artery disease) Current Visit: Yes Status: Chronic Assessment and plan: Clinically, stable without signs or symptoms. Qualifiers: Coronary Disease-Associated Artery/Lesion type: unspecified vessel or lesion type Qualified Code(s): I25.10 - Atherosclerotic heart disease of [place] coronary artery without angina pectoris (4) HTN (hypertension) Current Visit: Yes Status: Chronic Assessment and plan: Marginally controlled. Will follow. Qualifiers: Hypertension type: unspecified Qualified Code(s): I10 - Essential (primary) hypertension (5) Sleep apnea Current Visit: No Status: Chronic Assessment and plan: Compliant with CPAP. Qualifiers: Sleep apnea type: unspecified type Qualified Code(s): G47.30 - Sleep apnea, unspecified (6) COPD (chronic obstructive pulmonary disease) Current Visit: Yes Status: Chronic Assessment and plan: Clinically stable with normal airflow and no evidence of desaturation. Qualifiers: Emphysema type: unspecified Qualified Code(s): J43.9 - Emphysema, unspecified (7) Diabetes 1.5, managed as type 2 Current Visit: Yes Status: Chronic Assessment and plan: Adequate control but will follow on current regimen including sliding scale. (8) A-fib Current Visit: Yes Status: Acute Assessment and plan: Clinically stable with rate control. Qualifiers: Atrial fibrillation type: unspecified Qualified Code(s): I48.91 - Unspecified atrial fibrillation (9) Psoriasis Current Visit: Yes Status: Acute Assessment and plan: We will continue current steroid as this is what is available on formulary and defer management to media marketing specialist after discharge. - Subjective Interval history: Patient was prescribed metometasone fumarate yesterday. He states that when he returns home he will go back to using his shampoo supplied by his media marketing specialist. The patient is interested in going home. We discussed that and he agreed to stay until tomorrow afternoon after [facility] meeting or until Monday or longer if therapy feels he needs more training. Hip pain is improved but still present. He denies other problems. Patient has no complaint of chest discomfort, dyspnea, orthopnea, palpitations, nausea or vomiting, constipation or diarrhea, other changes in bowel habits, difficulty with urination, rash or itching, or other new complaints, except as mentioned above. Review of systems is otherwise negative. I discussed management of patient's care with nursing staff. - Constitutional Vitals: Temp Pulse Resp BP Pulse Ox 98.1 F 71 16 105/67 92 12/09/18 08:19 12/09/18 08:19 12/09/18 08:19 12/09/18 08:19 12/09/18 08:19 Exam: General: In no apparent distress. Alert and oriented 3. Nondiaphoretic. Head: Atraumatic and normocephalic. Respiratory: No use of accessory muscles. Lungs are clear throughout. Normal airflow. Cardiovascular: Irregularly irregular without murmur heard. Rate is adequately controlled. Abdomen: Bowel sounds are normal. No hepatosplenomegaly mass or tenderness appreciated. Obese and therefore difficult to palpate deeply. Extremities: No cyanosis clubbing or edema. Skin: Warm and non-diaphoretic with no new lesions noted. Internal Medicine: Result - Labs CBC & Chem 7: 12/07/18 05:11 12/07/18 05:11 - VTE Documentation of Mechanical Device: Graduated compression elastic hosiery Consult Discharge Plan - Plan Referrals: Tera Rosario MD [Primary Care Provider] -
[2018-12-09] MEDS: Methocarbamol 500 MG TABLET PO PRN (16:37)
[2018-12-09] MEDS: traZODone 50 MG TABLET PO SCH (21:46)
[2018-12-09] MEDS: Melatonin 3 MG TABLET PO PRN (21:47)
[2018-12-10] MEDS: *HR* OxyCODONE Immed Rel 5 MG TABLET PO PRN ×3 (06:11→20:41)
[2018-12-10 06:16] LABS: White Blood Count 9.7 K/mcL (4.3-11.1)
[2018-12-10 06:17] LABS: Basophils # 0.1 K/mcL (0.0-0.2); Basophils % 0.7 %; Eosinophils # 0.6 K/mcL (0.0-0.6); Eosinophils % 5.7 %; Hematocrit 36.8 % (37.5-50.1); Immature Granulocytes % 0.5 % (0-4); Lymphocytes % 20.9 %; Mean Corpuscular HGB Conc 32.6 g/dL (31.6-35.5); Mean Corpuscular Hemoglobin 32.9 pg (28.0-33.3); Mean Corpuscular Volume 100.8 fL (83.0-100.0); Mean Platelet Volume 9.9 fL (9.4-12.4); Monocytes # 1.3 K/mcL (0.0-1.3); Monocytes % 13.7 %; Neutrophils # 5.7 K/mcL (1.6-8.9); Platelet Count 289 K/mcL (140-400); Red Blood Count 3.65 M/mcL (4.19-5.50); Segmented Neutrophils % 58.5 %
[2018-12-10 06:42] LABS: BUN/Creatinine Ratio 13 (6-26); Blood Urea Nitrogen 11 mg/dL (8-23); Calcium 8.7 mg/dL (8.6-10.3); Carbon Dioxide 25 mEq/L (23-29); Chloride 105 mEq/L (98-107); Glucose 107 mg/dL (70-105); Magnesium 2.4 mg/dL (1.6-2.6); Osmolality,Calculated 282 (280-300); Sodium 136 mEq/L (136-145); eGFR For African Americans > 60 (> 60); eGFR For Non-African Americans > 60 (> 60)
[2018-12-10] MEDS: Budesonide/Formoterol 160/4.5 1 PUFF INH IH SCH ×2 (07:47→20:26)
[2018-12-10] MEDS: Insulin LISPRO 300 UNITS/3 ML VIAL SQ SCH ×4 (08:44→20:49)
[2018-12-10] MEDS: *HR* Amiodarone 200 MG TABLET PO SCH (08:54)
[2018-12-10] MEDS: Cholecalciferol (D-3) 1,000 UNIT (25MCG) TABLET PO SCH (08:54)
[2018-12-10] MEDS: Finasteride 5 MG TABLET PO SCH (08:55)
[2018-12-10] MEDS: Pregabalin 75 MG CAPSULE PO SCH ×3 (08:55→20:29)
[2018-12-10] MEDS: Methocarbamol 500 MG TABLET PO PRN ×2 (08:56→16:42)
[2018-12-10] MEDS: Multivit/Ca/Min/Fe/FA 1 TAB TABLET PO SCH (08:56)
[2018-12-10] MEDS: *HR* Metformin 500 MG TABLET PO SCH ×2 (08:56→16:39)
[2018-12-10] MEDS: amLODIPine 5 MG TABLET PO SCH (08:57)
[2018-12-10] MEDS: Aspirin Enteric Coated 81 MG Tablet PO SCH (08:57)
[2018-12-10] MEDS: Folic Acid 1 MG TABLET PO SCH (08:57)
[2018-12-10] MEDS: *HR* Glimepiride 2 MG TABLET PO SCH (08:57)
[2018-12-10] MEDS: *HR* Enoxaparin 40 MG/0.4 ML SYRINGE SQ SCH (08:58)
[2018-12-10] MEDS: Acetaminophen 325 MG TABLET PO PRN ×2 (08:58→16:42)
[2018-12-10] MEDS: Furosemide 20 MG TABLET PO SCH ×2 (08:58→16:39)
[2018-12-10] MEDS: Triamcinolone Acet 0.1% CRM 15 GM TUBE TP SCH ×2 (08:58→20:49)
--- NOTE | 2018-12-10 10:11 | Internal Med Progress Note ---
Date of Encounter: 12/10/18 Time of Encounter: 10:09 - Assessment and plan (1) Fusion of lumbar spine Current Visit: Yes Status: Acute Assessment and plan: Continue PT and OT. Will follow progress. Pain controlled with current medication. Follow up with surgeon as scheduled. (2) A-fib Current Visit: Yes Status: Acute Assessment and plan: Rate and rhythm stable. Continue current medication. Qualifiers: Atrial fibrillation type: unspecified Qualified Code(s): I48.91 - Un specified atrial fibrillation (3) CAD (coronary artery disease) Current Visit: Yes Status: Chronic Assessment and plan: Stable. Denies chest pain. Continue current medication. Qualifiers: Coronary Disease-Associated Artery/Lesion type: unspecified vessel or lesion type Qualified Code(s): I25.10 - Atherosclerotic heart disease of [place] coronary artery without angina pectoris (4) HTN (hypertension) Current Visit: Yes Status: Chronic Assessment and plan: Controlled with current medication. Monitor blood pressure. Qualifiers: Hypertension type: unspecified Qualified Code(s): I10 - Essential (primary) hypertension (5) COPD (chronic obstructive pulmonary disease) Current Visit: Yes Status: Chronic Assessment and plan: Controlled with current medication. Qualifiers: Emphysema type: unspecified Qualified Code(s): J43.9 - Emphysema, unspecified (6) Diabetes 1.5, managed as type 2 Current Visit: Yes Status: Chronic Assessment and plan: Controlled with current medication. Continue fingerstick blood sugar. Continue insulin. - Subjective Interval history: Participating well with therapy. Planning for discharge tomorrow. Pain controlled with current medication. Denies fever, chills, nausea vomiting or diarrhea. Denies shortness of breath or chest pain. - Constitutional Vitals: Temp Pulse Resp BP Pulse Ox 98.8 F 75 18 180/76 92 12/10/18 09:00 12/10/18 09:00 12/10/18 09:00 12/10/18 09:00 12/10/18 09:00 General appearance: Present: cooperative, A&O X 3, pleasant, no acute distress, obese, answers questions appropriately - Head Head exam: Present: atraumatic, normocephalic - Eye Eye exam: Present: PERRL, conjuntiva pink, sclera anicteric Pupils: Present: PERRL - Neck Neck exam general surgery: Present: supple, trachea midline. Absent: lympha denopathy - Respiratory Respiratory exam: Present: CTAB. Absent: accessory muscle use, rales, rhonchi, wheezes - Cardiovascular Cardiovascular exam: Present: RRR, +S1, +S2. Absent: diastolic murmur, gallop, rubs, systolic murmur - GI/Abdominal GI/Abdominal exam: Present: normal bowel sounds, soft, no peritoneal signs. Absent: distended, tenderness - Extremities Exam Extremities exam: Present: warm, radial pulses palpable and symmetrical. Absent: calf tenderness, cyanotic, pedal edema Additional comments: Bilateral lower extremity edema left lower extremity chronic lymphedema. Right lower extremity 1+ pitting. - Incison Comments: Lumbar spine incision dressing dry and intact. No drainage. - Neurological Exam Neurological exam: Present: CN II-XII intact, oriented X3, no focal deficits. Absent: pronater drift, facial droop, speech deficit - Skin Skin exam: Present: dry, intact Internal Medicine: Result - Labs CBC & Chem 7: 12/10/18 05:50 12/10/18 05:50 Labs: Short CBC 12/10/18 Range/Units 05:50 WBC 9.7 (4.3-11.1) K/mcL Hgb 12.0 L (12.9-16.9) g/dL Hct 36.8 L (37.5-50.1) % Plt Count 289 (140-400) K/mcL Neutrophils # 5.7 (1.6-8.9) K/mcL BMP 12/10/18 05:50 Sodium 136 Potassium 4.0 Chloride 105 Carbon Dioxide 25 BUN 11 Creatinine 0.85 Glucose 107 H Calcium 8.7 - VTE Documentation of Mechanical Device: Graduated compression elastic hosiery Consult Discharge Plan - Plan Referrals: Tera Rosario MD [Primary Care Provider] -
[2018-12-10] MEDS: traZODone 50 MG TABLET PO SCH (20:28)
[2018-12-10] MEDS: Melatonin 3 MG TABLET PO PRN (20:42)
[2018-12-11 07:19] VITALS: BP 155/71
[2018-12-11] MEDS: Insulin LISPRO 300 UNITS/3 ML VIAL SQ SCH (07:24)
[2018-12-11] MEDS: Aspirin Enteric Coated 81 MG Tablet PO SCH (07:25)
[2018-12-11] MEDS: Finasteride 5 MG TABLET PO SCH (07:25)
[2018-12-11] MEDS: Pregabalin 75 MG CAPSULE PO SCH (07:25)
[2018-12-11] MEDS: amLODIPine 5 MG TABLET PO SCH (07:25)
[2018-12-11] MEDS: Multivit/Ca/Min/Fe/FA 1 TAB TABLET PO SCH (07:25)
[2018-12-11] MEDS: *HR* Metformin 500 MG TABLET PO SCH (07:25)
[2018-12-11] MEDS: *HR* OxyCODONE Immed Rel 5 MG TABLET PO PRN (07:25)
[2018-12-11] MEDS: *HR* Amiodarone 200 MG TABLET PO SCH (07:25)
[2018-12-11] MEDS: *HR* Glimepiride 2 MG TABLET PO SCH (07:26)
[2018-12-11] MEDS: Folic Acid 1 MG TABLET PO SCH (07:26)
[2018-12-11] MEDS: Cholecalciferol (D-3) 1,000 UNIT (25MCG) TABLET PO SCH (07:26)
[2018-12-11] MEDS: Triamcinolone Acet 0.1% CRM 15 GM TUBE TP SCH (07:26)
[2018-12-11] MEDS: *HR* Enoxaparin 40 MG/0.4 ML SYRINGE SQ SCH (07:26)
[2018-12-11] MEDS: Furosemide 20 MG TABLET PO SCH (07:26)
--- NOTE | 2018-12-11 09:05 | Discharge Summary ---
Date of Encounter: 12/11/18 Time of Encounter: 09:03 - Discharge Diagnosis (1) Fusion of lumbar spine Priority: Primary Status: Acute Comments: Patient is a postoperative L25 lumbar laminectomy with fusion. Patient is a redo surgery for approximately 1 year ago. Patient has progressed well with therapy during his stay. No acute issues noted. States pain is controlled with current medications. Surgical wound appears healthy and healing well with dressing dry and intact. (2) CAD (coronary artery disease) Priority: Secondary Status: Chronic Comments: No acute issues during his stay of facility. Patient denies any chest discomforts or palpitations. We will continue with current medications at discharge, except for his Amiodarone. Patient instructed by Cardiology to discontinue his Amiodarone after discharge. Qualifiers: Coronary Disease-Associated Artery/Lesion type: unspecified vessel or lesion type Qualified Code(s): I25.10 - Atherosclerotic heart disease of [place] coronary artery without angina pectoris (3) HTN (hypertension) Priority: Secondary Status: Chronic Comments: Vital signs are stable during stay of facility. We will continue with current medications after discharge Qualifiers: Hypertension type: unspecified Qualified Code(s): I10 - Essential (primary) hypertension (4) COPD (chronic obstructive pulmonary disease) Priority: Secondary Status: Chronic Comments: No acute issues. Patient continues with current medications at time of discharge. Denies any shortness of breath or productive cough. Qualifiers: Emphysema type: unspecified Qualified Code(s): J43.9 - Emphysema, unspecified (5) Diabetes 1.5, managed as type 2 Priority: Secondary Status: Chronic Comments: Glucose above well-controlled during his stay of facility. We will continue with current medication regimen after discharge Hospital course: Mr. Haney is a 73 year old male, who was admitted to inpatient rehab unit status post bilateral laminectomy. Patient states that he had a laminectomy from L4-5 approximately 1 year ago which eventually failed and he was reevaluated by his surgeon who proceeded to redo his laminectomy from L2-5. Patient's recovery at Hospital was uneventful. Patient's stay at the rehabilitation was uneventful and patient dissipated with therapy and progressed well. Past medical history includes a fib, CAD, COPD, chronic lymphedema to left lower extremity, peripheral neuropathy, sleep apnea, diabetes type II, Gerd, psoriatic arthritis CAD status post PCI in 2008. Wears CPAP at 2 L at bedtime. States he has been having pain to right hip area, but Xrays were negative. Former smoker with one and half packs a day for the last 40 years. Reports quitting smoking about 6 1/2 years ago. Patient states that his pain has been tolerable with current pain medications. Patient is being discharged with prescriptions for Robaxin and oxycodone. Continue with current medications at time of discharge except for his amiodarone. Patient has orders from pulmonology and cardiology to discontinue his amiodarone after distress discharge. Patient is continue follow-up with PCP, his surgeon and cardiology after discharge Discharge discussed with: patient Time spent discussing smoking cessation with patient: 3 to 10 minutes - Time Spent with Patient Total time spent providing and/or coordinating discharge services: Time spent: Less than 30 minutes - Discharge Medications Prescriptions: No Action amLODIPine [Norvasc] 10 mg PO DAILY OxyCODONE Immed Rel [Roxicodone 5 MG] 5 mg PO Q4HR PRN PRN Reason: Moderate Pain OxyCODONE Immed Rel [Roxicodone 10 MG] 10 mg PO Q4HR PRN PRN Reason: Severe Pain Amiodarone [Cordarone] 100 mg PO DAILY Albuterol Sulfate [Albuterol Inhaler] 2 puff IH DAILY PRN PRN Reason: Wheezing Fish Oil/Dha/Epa [Fish Oil 1,200 mg Fish Oil] 1 each PO DAILY Finasteride [Proscar] 5 mg PO DAILY Ferrous Sulfate [Iron] 325 mg PO DAILY Calcium Polycarbophil [Fibercon] 625 mg PO BID metFORMIN [Glucophage] 500 mg PO BIDWM Melatonin 5 mg PO HS PRN PRN Reason: Insomnia Glimepiride [Amaryl] 2 mg PO 0800 Folic Acid 1 mg PO DAILY Cholecalciferol (D-3) [Vitamin D] 1,000 unit PO BID traZODone [TraZODone] 100 mg PO HS Budesonide/Formoterol 160/4.5 [Symbicort 160/4.5] 2 puff IH BIDR L.acidoph,Paracasei, B.lactis [Probiotic] 1 each PO DAILY Omeprazole Magnesium [Prilosec Otc] 20 mg PO DAILY Pregabalin [Lyrica] 150 mg PO TID Potassium Chloride [K-Tab ER] 20 meq PO BID Aspirin [Adult Aspirin Regimen] 81 mg PO DAILY Montelukast [Singulair] 10 mg PO HS Metoprolol [Lopressor] 25 mg PO BID Methotrexate [Otrexup] 20 mg PO QWEEK Methocarbamol [Robaxin] 750 mg PO Q8HR PRN PRN Reason: Spasms Calcium Carbonate/Vitamin D3 [Calcium 600 + Vit D Tablet] 1 each PO BID Mv-Mn/FA/Coq10/Lycopene/Lutein [Theragran-M Premier 50+ Caplet] 1 each PO SHARLENE LY Simvastatin [Zocor] 10 mg PO HS Furosemide [Lasix] 20 mg PO BID Lisinopril [Zestril] 10 mg PO HS Mupirocin Calcium [Bactroban Nasal] 1 gm NS DAILY Home Medications: Albuterol Sulfate [Albuterol Inhaler] 2 puff IH DAILY PRN 12/29/17 [History] Amiodarone [Cordarone] 100 mg PO DAILY 12/29/17 [History] Aspirin [Adult Aspirin Regimen] 81 mg PO DAILY 12/29/17 [History] Budesonide/Formoterol 160/4.5 [Symbicort 160/4.5] 2 puff IH BIDR 12/29/17 [History] Calcium Carbonate/Vitamin D3 [Calcium 600 + Vit D Tablet] 1 each PO BID 12/29/17 [History] Calcium Polycarbophil [Fibercon] 625 mg PO BID 12/29/17 [History] Cholecalciferol (D-3) [Vitamin D] 1,000 unit PO BID 12/29/17 [History] Ferrous Sulfate [Iron] 325 mg PO DAILY 12/29/17 [History] Finasteride [Proscar] 5 mg PO DAILY 12/29/17 [History] Fish Oil/Dha/Epa [Fish Oil 1,200 mg Fish Oil] 1 each PO DAILY 12/29/17 [History] Folic Acid 1 mg PO DAILY 12/29/17 [History] Glimepiride [Amaryl] 2 mg PO 0800 12/29/17 [History] L.acidoph,Paracasei, B.lactis [Probiotic] 1 each PO DAILY 12/29/17 [History] Melatonin 5 mg PO HS PRN 12/29/17 [History] Methocarbamol [Robaxin] 750 mg PO Q8HR PRN 12/29/17 [History] Methotrexate [Otrexup] 20 mg PO QWEEK 12/29/17 [History] Metoprolol [Lopressor] 25 mg PO BID 12/29/17 [History] Montelukast [Singulair] 10 mg PO HS 12/29/17 [History] Mv-Mn/FA/Coq10/Lycopene/Lutein [Theragran-M Premier 50+ Caplet] 1 each PO DAILY 12/29/17 [History] Omeprazole Magnesium [Prilosec Otc] 20 mg PO DAILY 12/29/17 [History] OxyCODONE Immed Rel [Roxicodone 10 MG] 10 mg PO Q4HR PRN 12/29/17 [History] OxyCODONE Immed Rel [Roxicodone 5 MG] 5 mg PO Q4HR PRN 12/29/17 [History] Potassium Chloride [K-Tab ER] 20 meq PO BID 12/29/17 [History] Pregabalin [Lyrica] 150 mg PO TID 12/29/17 [History] amLODIPine [Norvasc] 10 mg PO DAILY 12/29/17 [History] metFORMIN [Glucophage] 500 mg PO BIDWM 12/29/17 [History] traZODone [TraZODone] 100 mg PO HS 12/29/17 [History] Furosemide [Lasix] 20 mg PO BID 12/06/18 [History] Lisinopril [Zestril] 10 mg PO HS 12/06/18 [History] Mupirocin Calcium [Bactroban Nasal] 1 gm NS DAILY 12/06/18 [History] Simvastatin [Zocor] 10 mg PO HS 12/06/18 [History] Allergies/Adverse Reactions: Allergy/AdvReac Type Severity Reaction Status Date / Time codeine Allergy Nausea Verified 12/29/17 20:12 Latex, Natural Rubber Allergy Rash Verified 12/29/17 20:12 Penicillins Allergy Rash Verified 12/29/17 20:12 Sulfa (Sulfonamide Allergy Rash Verified 12/29/17 20:12 Antibiotics) Date of admission: 12/06/18 14:33 Primary care physician: Tera Rosario MD Consults: 12/06/18 14:46 Consult to Occupational Therapy [CONS] Routine Comment: eval need Reason for Consult: eval post spinal fusion Does patient have active BEDREST order?: No Is patient medically & hemodynamically stable?: Yes Patient assessed for mobility or mobilized this visit?: No Consult to Physical Therapy [CONS] Routine Comment: eval need Reason for Consult: eval for post spinal fusion Does patient have active BEDREST order?: No Is patient medically & hemodynamically stable?: Yes Patient assessed for mobility or mobilized this visit?: No Consult to Recreational Therapy [CONS] Routine Comment: Consult to Health Care Law Specialist [CONS] Routine Reason for SW Consult: discharge process 12/06/18 14:59 Consult to Speech Therapy [CONS] Routine Comment: Evaluate, develop and implement POC Reason for Consult: eval post spinal fusion was on aspiration precautions Call Completed: Yes Discharging clinician: Israel Kohli - Constitutional Vitals: Temp Pulse Resp BP Pulse Ox 98.2 F 76 16 155/71 94 12/11/18 07:18 12/11/18 07:18 12/11/18 07:18 12/11/18 07:18 12/11/18 07:18 General appearance: Present: cooperative, A&O X 3, pleasant, no acute distress, obese, answers questions appropriately - Head Head exam: Present: atraumatic, normocephalic - Eye Eye exam: Present: PERRL, conjuntiva pink, sclera anicteric Pupils: Present: PERRL - Neck Neck exam general surgery: Present: supple, trachea midline. Absent: lymphadenopathy - Respiratory Respiratory exam: Present: decreased breath sounds, CTAB. Absent: accessory muscle use, rales, rhonchi, wheezes - Cardiovascular Cardiovascular exam: Present: irregular rhythm, RRR, +S1, +S2. Absent: diastolic murmur, gallop, rubs, systolic murmur Additional comments: Patient's heart rate is irregular with a controlled ventricular rate less than 100 - GI/Abdominal GI/Abdominal exam: Present: normal bowel sounds, soft, no peritoneal signs. Absent: distended, tenderness - Extremities Exam Extremities exam: Present: warm, radial pulses palpable and symmetrical. Ab sent: calf tenderness, cyanotic, pedal edema - Back Exam Additional comments: Midline lumbar incision appears to be healing well with dressing dry and intact - Neurological Exam Neurological exam: Present: CN II-XII intact, oriented X3, no focal deficits. Absent: pronater drift, facial droop, speech deficit - Skin Skin exam: Present: dry, intact - Patient Status Disposition: Home, Self-Care Condition: Good Functional capacity at discharge: uses cane/walker Overall status at discharge: patient is progressing back to baseline - Discharge Instructions Follow Up With: eTra Rosario MD [Primary Care Provider] - - Diet and Activity Activity: as per physical therapy, increase activity as tolerated Diet: diabetic diet, low fat, low cholesterol, low salt diet - VTE Documentation of Mechanical Device: Graduated compression elastic hosiery
[2018-12-11] MEDS ORDERED: FLU Vac QV 19-20 (6Month+)/PF 0.5 ML SYRINGE IM ONE (09:56)
[2018-12-11] MEDS ORDERED: *HR* Methotrexate 2.5 MG TABLET PO SCH (15:57)
== END 2018-12-11 11:12 | disposition home or self-care (01) | DRG 950 ==
LOC: INPGRE 12-06 14:33